=== PATIENT | female | born 1955 | race Caucasian/White ===

== ENCOUNTER → 2020-07-03 10:08 | Outpatient (BNVA) | payer SELFPAY | PROVIDERS: Visit Provider Internal Medicine | DX: F11.99 Opioid use, unspecified with unspecified opioid-induced disorder (principal) | CPT/HCPCS: 80305; 99212 ==

== ENCOUNTER → 2020-09-01 10:11 | Outpatient (BNVA) | payer SELFPAY | PROVIDERS: Visit Provider Internal Medicine | DX: Z76.89 Persons encountering health services in other specified circumstances (principal) ==

== ENCOUNTER → 2020-10-27 10:07 | Outpatient (BNVA) | payer OTHER, SELFPAY | PROVIDERS: Visit Provider Internal Medicine | DX: F11.99 Opioid use, unspecified with unspecified opioid-induced disorder (principal) ==

== ENCOUNTER 2020-11-29 11:50 | Outpatient (REF) | payer OTHER, SELFPAY ==
[2020-11-29 14:05] LABS: Glucose Urine UA NEG (NEG); Leukocyte Esterase Urine NEG (NEG); Nitrite Urine NEG (NEG); Urine Blood NEG (NEG); Urine Ketones NEG (NEG); Urine Protein TRACE MG/DL (NEG-TRACE)
[2020-11-29 14:06] LABS: MANUAL DIFF FLAG NO
[2020-11-29 14:12] LABS: Basophils Absolute Auto 0.1 X10*3/uL (0.0-0.2); Basophils Percent Auto 0.7 % (0-2); Eosinophils Absolute Auto 0.2 X10*3/uL (0.0-0.4); Eosinophils Percent Auto 2.6 % (0-4); Hematocrit 37.6 % (37-47); Hemoglobin 12.1 g/dl (12.0-16.0); Imm Gran Abs Auto 0.03 X10*3/uL (0.00-0.03); Imm Gran Pct Auto 0.4 % (0.0-0.4); Lymphocytes Absolute Auto 2.5 X10*3/uL (1.2-4.9); Lymphocytes Percent Auto 36.1 % (20-40); Mean Corpuscular HGB Conc 32.2 g/dl (31.0-35.0); Mean Corpuscular Hemoglobin 28.9 pg (27.0-33.0); Mean Platelet Volume 10.9 fL (9.4-12.3); Monocytes Absolute Auto 0.5 X10*3/uL (0.1-1.2); Monocytes Percent Auto 6.8 % (2-11); Neutrophils Absolute Auto 3.7 X10*3/uL (2.0-8.3); Neutrophils Percent Auto 53.4 % (45-73); Platelet Count 322 X10*3/uL (160-400); Red Blood Count 4.18 X10*6/uL (4.20-5.50); Red Cell Distribution Width 14.8 % (11.0-16.0); White Blood Count 6.9 X10*3/uL (4.8-10.8)
[2020-11-29 14:13] LABS: Appearance Urine CLEAR; Color Urine YELLOW
[2020-11-29 14:29] LABS: Alanine Aminotransferase 23 U/L (0-31); Alkaline Phosphatase 113 U/L (39-117); Anion Gap 10 (12-20); Aspartate Amino Transferase 29 U/L (5-31); Bilirubin Total 0.8 mg/dL (0.0-1.0); Blood Urea Nitrogen 17 mg/dL (9-16); Calcium 10.3 mg/dL (8.4-10.2); Carbon Dioxide 33 mmol/L (22-29); Chloride 101 mmol/L (96-108); Cholesterol 179 mg/dL; Estimated Glomerular Filt Rate > 60; Glucose Random 95 mg/dL (60-115); Potassium 4.3 mmol/L (3.3-5.1); Sodium 140 mmol/L (135-145); Total Protein 7.3 g/dL (6.5-8.0)
[2020-11-29 14:44] LABS: Vitamin D 25-OH Total 54.4 ng/mL (>30)
[2020-11-29 15:31] LABS: Albumin Level 4.3 g/dL (3.5-5.0)
== END 2020-11-29 11:51 | disposition home or self-care (01) ==
LOC: HO.10HDL 11:50
PROVIDERS: Visit Provider Internal Medicine
DX: I12.9 Hypertensive chronic kidney disease with stage 1 through stage 4 chronic kidney disease, or unspecified chronic kidney disease (principal); N18.9 Chronic kidney disease, unspecified; N20.0 Calculus of kidney
CPT/HCPCS: 36415; 80053; 81003; 82306; 82465; 85025

== ENCOUNTER → 2020-12-22 09:58 | Outpatient (BNVA) | payer OTHER, SELFPAY | PROVIDERS: Visit Provider Internal Medicine | DX: F11.99 Opioid use, unspecified with unspecified opioid-induced disorder (principal) | CPT/HCPCS: 80305 ==

== ENCOUNTER 2020-12-22 12:30 | Outpatient (REF) | payer OTHER, SELFPAY ==
[2020-12-22 14:08] LABS: Glucose Urine UA NEG (NEG); Leukocyte Esterase Urine NEG (NEG); Nitrite Urine NEG (NEG); Specific Gravity - Urine 1.025 (1.005-1.025); Urine Blood NEG (NEG); Urine Ketones NEG (NEG); Urine Protein NEG (NEG-TRACE)
[2020-12-22 14:14] LABS: Appearance Urine CLEAR; Color Urine YELLOW
[2020-12-22 14:29] LABS: Mucus Urine 1+ /LPF; RBC Urine 0 /HPF (0); Renal Epithelial Cells Urine 1+ /LPF; Squamous Epithelial Cell Urine 1+ /LPF
[2020-12-22 14:35] LABS: Anion Gap 12 (12-20); Blood Urea Nitrogen 12 mg/dL (9-16); Carbon Dioxide 30 mmol/L (22-29); Chloride 102 mmol/L (96-108); Estimated Glomerular Filt Rate > 60; Potassium 3.8 mmol/L (3.3-5.1); Sodium 140 mmol/L (135-145)
== END 2020-12-22 12:31 | disposition home or self-care (01) ==
LOC: HO.10HDL 12:30
PROVIDERS: Visit Provider Internal Medicine Nephrology
DX: I10 Essential (primary) hypertension (principal); N20.0 Calculus of kidney
CPT/HCPCS: 36415; 80051; 81001; 82310; 82565; 84520

== ENCOUNTER → 2021-02-19 10:50 | Outpatient (BNVA) | payer OTHER, SELFPAY | PROVIDERS: Visit Provider Internal Medicine | DX: F11.99 Opioid use, unspecified with unspecified opioid-induced disorder (principal) | CPT/HCPCS: 80305 ==

== ENCOUNTER 2021-03-14 10:49 | Outpatient (REF) | payer OTHER, SELFPAY ==
[2021-03-14 13:44] LABS: MANUAL DIFF FLAG NO
[2021-03-14 13:58] LABS: Glucose Urine UA NEG (NEG); Leukocyte Esterase Urine NEG (NEG); Nitrite Urine NEG (NEG); Specific Gravity - Urine 1.015 (1.005-1.025); Urine Blood TRACE (NEG); Urine Ketones NEG (NEG); Urine Protein 1+ MG/DL (NEG-TRACE)
[2021-03-14 14:01] LABS: Basophils Percent Auto 0.5 % (0-2); Eosinophils Absolute Auto 0.3 X10*3/uL (0.0-0.4); Eosinophils Percent Auto 4.7 % (0-4); Hematocrit 37.2 % (37-47); Hemoglobin 11.8 g/dl (12.0-16.0); Imm Gran Abs Auto 0.01 X10*3/uL (0.00-0.03); Imm Gran Pct Auto 0.2 % (0.0-0.4); Lymphocytes Percent Auto 31.3 % (20-40); Mean Corpuscular HGB Conc 31.7 g/dl (31.0-35.0); Mean Corpuscular Hemoglobin 29.2 pg (27.0-33.0); Mean Corpuscular Volume 92.1 fL (80-98); Mean Platelet Volume 10.8 fL (9.4-12.3); Monocytes Absolute Auto 0.5 X10*3/uL (0.1-1.2); Monocytes Percent Auto 7.9 % (2-11); Neutrophils Absolute Auto 3.5 X10*3/uL (2.0-8.3); Neutrophils Percent Auto 55.4 % (45-73); Platelet Count 310 X10*3/uL (160-400); Red Blood Count 4.04 X10*6/uL (4.20-5.50); Red Cell Distribution Width 14.3 % (11.0-16.0); White Blood Count 6.4 X10*3/uL (4.8-10.8)
[2021-03-14 14:02] LABS: Appearance Urine CLEAR; Color Urine YELLOW
[2021-03-14 14:09] LABS: WBC Urine 0 /HPF (0-4)
[2021-03-14 14:30] LABS: Anion Gap 13 (12-20); Blood Urea Nitrogen 15 mg/dL (9-16); Carbon Dioxide 29 mmol/L (22-29); Chloride 104 mmol/L (96-108); Estimated Glomerular Filt Rate > 60; Glucose Random 107 mg/dL (60-115); Potassium 3.8 mmol/L (3.3-5.1); Sodium 142 mmol/L (135-145)
[2021-03-14 14:48] LABS: Calcium 10.5 mg/dL (8.4-10.2)
== END 2021-03-14 10:50 | disposition home or self-care (01) ==
LOC: HO.10HDL 10:49
PROVIDERS: Visit Provider Internal Medicine
DX: R10.9 Unspecified abdominal pain (principal); I10 Essential (primary) hypertension; N20.0 Calculus of kidney
CPT/HCPCS: 36415; 80048; 81001; 81003; 85025; 87086

== ENCOUNTER 2021-03-16 11:29 | Outpatient (REF) | payer OTHER, SELFPAY ==
--- NOTE | ~2021-03-16 | CT_ITS ---
EXAMINATION: CT ABDOMEN AND PELVIS WITHOUT CONTRAST CLINICAL INFORMATION: Right renal colic COMPARISON: Previous CT of the abdomen and pelvis most recent October 2018 and renal ultrasound December 1999 TECHNIQUE: Multidetector volumetric imaging was performed from the superior aspect of the liver through the pubic symphysis. Sagittal and coronal reformatted images were obtained on the technologist's workstation. This CT examination was performed using dose optimization techniques as appropriate, variously including the following: *Automated exposure control *Adjustment of mA and/or kV according to patient size (this includes techniques or standardized protocols for targeted exams where dose is matched to indication/reason for exam; i.e. extremities or head) *Use of iterative reconstruction technique DLP: 433 mGy-cm FINDINGS: LUNG BASES: The visualized lung bases are unremarkable. LIVER, GALLBLADDER, AND BILIARY TREE: The liver is low in attenuation suggestive of fatty infiltration. The liver is slightly enlarged, right lobe measuring 18 cm.. No focal hepatic lesion or biliary ductal dilatation is present. The gallbladder is unremarkable with no evidence of radiopaque gallstones, gallbladder wall thickening, or obvious pericholecystic inflammatory changes. PANCREAS: Unremarkable. SPLEEN: Unremarkable. ADRENAL GLANDS: Unremarkable. KIDNEYS AND URETERS: There is a 4 mm stone in the lower pole of the right kidney. There is a 2 mm stone in the upper pole left kidney. No hydronephrosis, ureteral dilatation or ureteral stone. BLADDER: Unremarkable. GASTROINTESTINAL TRACT: The small and large bowel are unremarkable. The appendix is unremarkable. ABDOMINAL WALL: No significant hernia is appreciated. There is fat in both inguinal canals, right greater than left similar to previous exam. LYMPH NODES: Normal. VASCULAR: Unremarkable. PELVIC VISCERA: Unremarkable. OSSEOUS STRUCTURES: There are degenerative changes of the spine. CT/CT abdomen pelvis wo con IMPRESSION: Small bilateral renal stones. No hydronephrosis. Slightly enlarged fatty liver.
== END 2021-03-16 11:30 | disposition home or self-care (01) ==
LOC: HO.CT 11:29
PROVIDERS: PCP Internal Medicine; Visit Provider Internal Medicine
DX: N23 Unspecified renal colic (principal)
CPT/HCPCS: 74176

== ENCOUNTER → 2021-04-16 10:31 | Outpatient (BNVA) | payer OTHER, SELFPAY | PROVIDERS: PCP Internal Medicine; Visit Provider Internal Medicine | DX: Z51.81 Encounter for therapeutic drug level monitoring (principal); F11.99 Opioid use, unspecified with unspecified opioid-induced disorder | CPT/HCPCS: 80305 ==

== ENCOUNTER 2021-06-18 10:35 | Outpatient (REF) | payer OTHER, SELFPAY ==
[2021-06-18 18:38] LABS: Fentanyl, urine Not Detected (Not Detect)
== END 2021-06-18 10:36 | disposition home or self-care (01) ==
LOC: HO.LNP 10:35
PROVIDERS: Visit Provider Internal Medicine
DX: F11.20 Opioid dependence, uncomplicated (principal); Z79.899 Other long term (current) drug therapy
CPT/HCPCS: 80305; 80307

== ENCOUNTER → 2021-07-25 10:15 | Outpatient (BNVA) | payer OTHER, SELFPAY | PROVIDERS: Visit Provider Internal Medicine | DX: F11.99 Opioid use, unspecified with unspecified opioid-induced disorder (principal); Z88.1 Allergy status to other antibiotic agents; Z88.0 Allergy status to penicillin; Z88.8 Allergy status to other drugs, medicaments and biological substances; Z51.81 Encounter for therapeutic drug level monitoring | CPT/HCPCS: 80305; 96372; Q9992 ==

== ENCOUNTER → 2021-08-22 10:31 | Outpatient (BNVA) | payer OTHER, SELFPAY | PROVIDERS: Visit Provider Internal Medicine | DX: F11.20 Opioid dependence, uncomplicated (principal); Z51.81 Encounter for therapeutic drug level monitoring; Z79.899 Other long term (current) drug therapy | CPT/HCPCS: 80305; 96372; Q9992 ==

== ENCOUNTER 2021-08-29 08:28 | Outpatient (REF) | payer OTHER, SELFPAY ==
[2021-08-29 10:04] LABS: MANUAL DIFF FLAG NO
[2021-08-29 10:10] LABS: Basophils Percent Auto 0.5 % (0-2); Eosinophils Absolute Auto 0.3 X10*3/uL (0.0-0.4); Eosinophils Percent Auto 5.7 % (0-4); Hematocrit 36.8 % (37.0-47.0); Hemoglobin 12.1 g/dl (12.0-16.0); Imm Gran Abs Auto 0.01 X10*3/uL (0.00-0.03); Imm Gran Pct Auto 0.2 % (0.0-0.4); Lymphocytes Absolute Auto 2.4 X10*3/uL (1.2-4.9); Lymphocytes Percent Auto 40.5 % (20-40); Mean Corpuscular HGB Conc 32.9 g/dl (31.0-35.0); Mean Corpuscular Hemoglobin 29.2 pg (27.0-33.0); Mean Corpuscular Volume 88.7 fL (80.0-98.0); Mean Platelet Volume 10.6 fL (9.4-12.3); Monocytes Absolute Auto 0.6 X10*3/uL (0.1-1.2); Monocytes Percent Auto 9.5 % (2-11); Neutrophils Absolute Auto 2.5 x10*3/uL (2.0-8.3); Neutrophils Percent Auto 43.6 % (45-73); Platelet Count 275 X10*3/uL (160-400); Red Blood Count 4.15 X10*6/uL (4.20-5.50); Red Cell Distribution Width 14.4 % (11.0-16.0); White Blood Count 5.8 X10*3/uL (4.8-10.8)
[2021-08-29 11:00] LABS: Alanine Aminotransferase 32 U/L (0-31); Alkaline Phosphatase 95 U/L (39-117); Anion Gap 12 (12-20); Aspartate Amino Transferase 35 U/L (5-31); Bilirubin Total 0.6 mg/dL (0.0-1.0); Blood Urea Nitrogen 14 mg/dL (9-16); Calcium 10.2 mg/dL (8.4-10.2); Carbon Dioxide 30 mmol/L (22-29); Chloride 103 mmol/L (96-108); Cholesterol 147 mg/dL; Estimated Glomerular Filt Rate > 60; Glucose Fasting 104 mg/dL (60-99); HDL Cholesterol 44 mg/dL; LDL Cholesterol Calculated 68 mg/dl; Potassium 3.5 mmol/L (3.3-5.1); Sodium 141 mmol/L (135-145); Total Protein 7.2 g/dL (6.5-8.0); Triglycerides 179 mg/dL
== END 2021-08-29 08:29 | disposition home or self-care (01) ==
LOC: HO.10HDL 08:28
PROVIDERS: Visit Provider Internal Medicine
DX: E78.00 Pure hypercholesterolemia, unspecified (principal); I10 Essential (primary) hypertension; J45.909 Unspecified asthma, uncomplicated
CPT/HCPCS: 36415; 80053; 80061; 85025

== ENCOUNTER → 2021-09-19 10:15 | Outpatient (BNVA) | payer OTHER, SELFPAY | PROVIDERS: Visit Provider Internal Medicine | DX: F11.20 Opioid dependence, uncomplicated (principal); Z51.81 Encounter for therapeutic drug level monitoring; Z79.899 Other long term (current) drug therapy | CPT/HCPCS: 80305; 96372; Q9991 ==

== ENCOUNTER → 2021-10-17 09:57 | Outpatient (BNVA) | payer OTHER, SELFPAY | PROVIDERS: Visit Provider Internal Medicine | DX: Z51.81 Encounter for therapeutic drug level monitoring (principal); F11.20 Opioid dependence, uncomplicated | CPT/HCPCS: 80305; 96372; Q9991 ==

== ENCOUNTER → 2021-11-14 10:33 | Outpatient (BNVA) | payer OTHER, SELFPAY | PROVIDERS: Visit Provider Internal Medicine | DX: Z51.81 Encounter for therapeutic drug level monitoring (principal); F11.20 Opioid dependence, uncomplicated | CPT/HCPCS: 80305; 81025; 96372; Q9991 ==

== ENCOUNTER → 2021-12-12 11:33 | Outpatient (BNVA) | payer OTHER, SELFPAY | PROVIDERS: Visit Provider Internal Medicine | DX: Z51.81 Encounter for therapeutic drug level monitoring (principal); F11.20 Opioid dependence, uncomplicated | CPT/HCPCS: 80305; 81025; 96372 ==

== ENCOUNTER 2021-12-12 12:17 | Outpatient (REF) | payer OTHER, SELFPAY ==
[2021-12-12 13:23] LABS: Appearance Urine CLEAR; Color Urine YELLOW; Glucose Urine UA NEG (NEG); Leukocyte Esterase Urine NEG (NEG); Nitrite Urine NEG (NEG); Urine Blood 1+ (NEG); Urine Ketones NEG (NEG); Urine Protein TRACE MG/DL (NEG-TRACE)
[2021-12-12 13:34] LABS: Squamous Epithelial Cell Urine 1+ /LPF; WBC Urine 0 /HPF (0-4)
[2021-12-12 13:40] LABS: Anion Gap 11 (12-20); Blood Urea Nitrogen 14 mg/dL (9-16); Calcium 10.7 mg/dL (8.4-10.2); Carbon Dioxide 31 mmol/L (22-29); Chloride 99 mmol/L (96-108); Estimated Glomerular Filt Rate > 60; Potassium 3.5 mmol/L (3.3-5.1); Sodium 137 mmol/L (135-145)
== END 2021-12-12 12:18 | disposition home or self-care (01) ==
LOC: HO.10HDL 12:17
PROVIDERS: Visit Provider Internal Medicine Nephrology
DX: F11.20 Opioid dependence, uncomplicated (principal); N20.0 Calculus of kidney; I10 Essential (primary) hypertension; Z51.81 Encounter for therapeutic drug level monitoring; Z79.899 Other long term (current) drug therapy
CPT/HCPCS: 36415; 80051; 81001; 82310; 82565; 84520

== ENCOUNTER → 2022-01-09 11:25 | Outpatient (BNVA) | payer OTHER, SELFPAY | PROVIDERS: Visit Provider Internal Medicine | DX: Z13.89 Encounter for screening for other disorder (principal) ==

== ENCOUNTER 2022-03-25 15:40 | Outpatient (REF) | payer OTHER, SELFPAY ==
[2022-03-25 15:58] LABS: MANUAL DIFF FLAG NO
[2022-03-25 16:10] LABS: Basophils Absolute Auto 0.1 X10*3/uL (0.0-0.2); Basophils Percent Auto 0.7 % (0-2); Eosinophils Absolute Auto 0.4 X10*3/uL (0.0-0.4); Eosinophils Percent Auto 4.6 % (0-4); Hemoglobin 12.9 g/dl (12.0-16.0); Imm Gran Abs Auto 0.01 X10*3/uL (0.00-0.03); Imm Gran Pct Auto 0.1 % (0.0-0.4); Lymphocytes Absolute Auto 3.1 X10*3/uL (1.2-4.9); Lymphocytes Percent Auto 40.4 % (20-40); Mean Corpuscular HGB Conc 33.1 g/dl (31.0-35.0); Mean Corpuscular Volume 90.7 fL (80.0-98.0); Monocytes Absolute Auto 0.6 X10*3/uL (0.1-1.2); Monocytes Percent Auto 7.8 % (2-11); Neutrophils Absolute Auto 3.5 x10*3/uL (2.0-8.3); Neutrophils Percent Auto 46.4 % (45-73); Platelet Count 294 X10*3/uL (160-400); Red Cell Distribution Width 14.3 % (11.0-16.0); White Blood Count 7.6 X10*3/uL (4.8-10.8)
[2022-03-25 16:59] LABS: Alanine Aminotransferase 47 U/L (0-31); Albumin Level 4.4 g/dL (3.5-5.0); Alkaline Phosphatase 96 U/L (39-117); Anion Gap 12 (12-20); Aspartate Amino Transferase 42 U/L (5-31); Bilirubin Total 0.6 mg/dL (0.0-1.0); Blood Urea Nitrogen 14 mg/dL (9-16); Calcium 11.1 mg/dL (8.4-10.2); Carbon Dioxide 29 mmol/L (22-29); Chloride 103 mmol/L (96-108); Estimated Glomerular Filt Rate > 60; Glucose Random 118 mg/dL (60-115); Potassium 3.6 mmol/L (3.3-5.1); Sodium 140 mmol/L (135-145); Total Protein 7.6 g/dL (6.5-8.0)
[2022-03-26 12:11] LABS: Calcium (PTHI) 11.2 mg/dL (8.6-10.4); PTHI 74 pg/mL (16-77)
== END 2022-03-25 15:41 | disposition home or self-care (01) ==
LOC: HO.LAB 15:40
PROVIDERS: PCP Internal Medicine; Visit Provider Internal Medicine
DX: I10 Essential (primary) hypertension (principal); J45.909 Unspecified asthma, uncomplicated; E78.00 Pure hypercholesterolemia, unspecified; E83.52 Hypercalcemia
CPT/HCPCS: 36415; 80053; 83970; 85025

== ENCOUNTER 2022-06-13 12:46 | Outpatient (REF) | payer OTHER, SELFPAY ==
[2022-06-13 14:11] LABS: Alanine Aminotransferase 49 U/L (0-31); Albumin Level 4.5 g/dL (3.5-5.0); Alkaline Phosphatase 109 U/L (39-117); Anion Gap 18 (12-20); Aspartate Amino Transferase 39 U/L (5-31); Bilirubin Total 0.3 mg/dL (0.0-1.0); Blood Urea Nitrogen 15 mg/dL (9-16); Carbon Dioxide 27 mmol/L (22-29); Chloride 101 mmol/L (96-108); Estimated Glomerular Filt Rate > 60; Glucose Random 94 mg/dL (60-115); Potassium 4.5 mmol/L (3.3-5.1); Sodium 141 mmol/L (135-145); Total Protein 7.7 g/dL (6.5-8.0)
[2022-06-13 14:23] LABS: Calcium 11.4 mg/dL (8.4-10.2)
== END 2022-06-13 12:47 | disposition home or self-care (01) ==
LOC: HO.10HDL 12:46
PROVIDERS: Visit Provider Internal Medicine
DX: E83.52 Hypercalcemia (principal); Z87.442 Personal history of urinary calculi; K76.0 Fatty (change of) liver, not elsewhere classified
CPT/HCPCS: 36415; 80053

== ENCOUNTER 2022-09-23 10:49 | Outpatient (REF) | payer OTHER, SELFPAY ==
[2022-09-23 13:28] LABS: MANUAL DIFF FLAG NO
[2022-09-23 13:34] LABS: Eosinophils Percent Auto 3.2 % (0-4); Hematocrit 39.7 % (37.0-47.0); Hemoglobin 12.9 g/dl (12.0-16.0); Imm Gran Pct Auto 0.3 % (0.0-0.4); Lymphocytes Percent Auto 41.2 % (20-40); Mean Corpuscular HGB Conc 32.5 g/dl (31.0-35.0); Mean Corpuscular Hemoglobin 29.5 pg (27.0-33.0); Mean Corpuscular Volume 90.8 fL (80.0-98.0); Mean Platelet Volume 10.1 fL (9.4-12.3); Monocytes Percent Auto 6.6 % (2-11); Neutrophils Percent Auto 47.7 % (45-73); Platelet Count 369 X10*3/uL (160-400); Red Blood Count 4.37 X10*6/uL (4.20-5.50); Red Cell Distribution Width 13.7 % (11.0-16.0)
[2022-09-23 13:35] LABS: Basophils Absolute Auto 0.1 X10*3/uL (0.0-0.2); Eosinophils Absolute Auto 0.2 X10*3/uL (0.0-0.4); Imm Gran Abs Auto 0.02 X10*3/uL (0.00-0.03); Lymphocytes Absolute Auto 2.9 X10*3/uL (1.2-4.9); Monocytes Absolute Auto 0.5 X10*3/uL (0.1-1.2); Neutrophils Absolute Auto 3.3 x10*3/uL (2.0-8.3)
[2022-09-23 13:46] LABS: Appearance Urine Cloudy; Color Urine Yellow; Glucose Urine UA Negative (Negative); Leukocyte Esterase Urine Trace (Negative); Nitrite Urine Negative (Negative); PH 6.5 (5.0-9.0); UMIC TRIGGER UA YES; Urine Blood Moderate (2+) (Negative); Urine Ketones Negative (Negative); Urine Protein 300 (3+) mg/dL (Neg-Trace)
[2022-09-23 14:01] LABS: Bacteria Urine None Seen (None Seen); Hyaline Casts Urine 0-2 /LPF (0-2); RBC Urine >20 /HPF (0-2); Squamous Epithelial Cell Urine 0-2 /HPF (0-2)
[2022-09-23 14:02] LABS: Alanine Aminotransferase 49 U/L (0-31); Albumin Level 4.3 g/dL (3.5-5.0); Alkaline Phosphatase 113 U/L (39-117); Anion Gap 16 (12-20); Aspartate Amino Transferase 45 U/L (5-31); Bilirubin Total 0.6 mg/dL (0.0-1.0); Blood Urea Nitrogen 14 mg/dL (9-16); Calcium 10.8 mg/dL (8.4-10.2); Carbon Dioxide 25 mmol/L (22-29); Chloride 105 mmol/L (96-108); Cholesterol 176 mg/dL; Estimated Glomerular Filt Rate > 60; Glucose Fasting 101 mg/dL (60-99); HDL Cholesterol 47 mg/dL; LDL Cholesterol Calculated 80 mg/dl; Phosphorus 2.6 mg/dL (2.7-4.5); Potassium 4.5 mmol/L (3.3-5.1); Sodium 141 mmol/L (135-145); Total Protein 7.5 g/dL (6.5-8.0); Triglycerides 249 mg/dL
[2022-09-24 12:58] LABS: Calcium (PTHI) 10.8 mg/dL (8.6-10.4); PTHI 107 pg/mL (16-77)
== END 2022-09-23 10:50 | disposition home or self-care (01) ==
LOC: HO.10HDL 10:49
PROVIDERS: Visit Provider Internal Medicine
DX: Z00.00 Encounter for general adult medical examination without abnormal findings (principal); N20.0 Calculus of kidney; I10 Essential (primary) hypertension
CPT/HCPCS: 36415; 80053; 80061; 81001; 83970; 84100; 85025

== ENCOUNTER 2023-01-15 12:29 | Outpatient (REF) | payer MEDICARE, SELFPAY ==
--- NOTE | ~2023-01-15 | MM_ITS ---
EXAMINATION: BONE DENSITOMETRY CLINICAL INDICATION: Menopause. COMPARISON: Baseline BD dated 10/06/2006. TECHNIQUE: Using a Combined Effort DXA System (software version: 13.1) manufactured by [employer], dual-energy x-ray absorptiometry was performed of the lumbar spine and left hip. The images are of good technical quality. Summary results are attached. FINDINGS: AP SPINE L1-L4: There is an oval density overlying the right paraspinal region, possibly staghorn calculus right kidney. Current: BMD 0.910 g/cm2, Z-score -1.2, T-score -2.2, osteopenia, 12.9% decrease from baseline (<5% change is not significant). Baseline: BMD 1.045 g/cm2. LEFT FEMUR, NECK: Current: BMD 0.710 g/cm2, Z-score -1.2, T-score -2.4, osteopenia. Baseline: BMD 0.809 g/cm2. LEFT FEMUR, TOTAL: Current: BMD 0.745 g/cm2, Z-score -1.2, T-score -2.1, osteopenia, 10.1% decrease from baseline (<5% change is not significant). Baseline: BMD 0.829 g/cm2. IDENTIFIED RISK FACTORS: Menopause. HISTORY OF FRACTURE: None listed. MEDICATIONS: Multivitamin. MM/XR DEXA axial skeleton IMPRESSION: 1. COMMENT: Oval density overlying right paraspinal region, possibly staghorn calculus right kidney. 2. DIAGNOSIS: Osteopenia based on the lowest T-score value of -2.4 in the femoral neck applying World Health Organization criteria. 3. 10-YEAR FRACTURE RISK PREDICTION, FRAX: Major osteoporotic fracture (clinical spine, forearm, hip or shoulder) 12.8%. Hip fracture 2.6%. 4. Treatment Recommendations: NOF guidelines recommend consideration for treatment in postmenopausal women and men age 50 and older presenting with the following: -A hip or vertebral (clinical or morphometric) fracture. -T-score less than or equal to -2.5 at the femoral neck or spine after appropriate evaluation to exclude secondary causes. -Low bone mass at the hip or spine and a 10-year fracture probability by FRAX of greater than or equal to 3% for hip fracture or greater than or equal to 20% for major osteoporotic fracture based on the [place] adapted WHO algorithm. 5. Other Recommendations: All treatment decisions require clinical judgment and consideration of individual patient factors, including patient preferences, comorbidities, previous drug use, risk factors not captured in the FRAX model (e.g. frailty, falls, vitamin D deficiency, increased bone turnover, interval significant decline in bone density) and possible under or overestimation of fracture risk by FRAX. Additional medical evaluation for secondary cause of low bone mineral density may be appropriate. FUTURE SCAN RECOMMENDATION: People with diagnosed cases of osteoporosis or at high risk for fracture should have regular bone mineral density tests. For patients eligible for Medicare, routine testing is allowed once every 2 years. The testing frequency can be increased to one year for patients who have rapidly progressing disease, those who are receiving or discontinuing medical therapy to restore bone mass, or have additional risk factors.
--- NOTE | ~2023-01-15 | MM_ITS ---
EXAMINATION: MM SCREENING DIGITAL BREAST TOMOSYNTHESIS, BILATERAL CLINICAL INFORMATION: Screening. Asymptomatic. The lifetime risk of breast cancer based on the Tyrer-Cuzick Model is 5.7%. COMPARISON: Mammography: 07/18/2017, 08/04/2017, and 10/25/2008. TECHNIQUE: Digital breast tomosynthesis is performed in both the craniocaudal and mediolateral oblique views along with computer-aided detection (CAD). Synthesized 2D images are generated from the tomosynthesis. FINDINGS: Comparison with prior studies is difficult due to technique used on the prior studies. The breasts are heterogeneously dense, which may obscure small masses (ACR BI-RADS breast composition Category c). There are multiple circumscribed densities seen within both breasts one of which within the inferior medial aspect contains some calcifications and for which spot magnification views and 90 degree mediolateral and craniocaudal views is suggested. Within the left breast medially approximately 5 cm from the nipple there is a 6 mm lobular density for which spot compression film is recommended. This may represent superimposition of multiple vessels however lobular mass cannot be excluded. MM/MM tomosynthesis screening BI IMPRESSION: Bilateral breast findings for which further evaluation is recommended. ASSESSMENT: BI-RADS 0: Incomplete - Need Additional Imaging Evaluation RECOMMENDATION: 1. Additional views of the bilateral breasts 2. Targeted ultrasound if warranted after review of the additional views. 3. Radiology department staff will contact the patient for additional imaging. This patient's information was entered into a reminder system with a target due date for their next mammogram.
== END 2023-01-15 12:30 | disposition home or self-care (01) ==
LOC: HO.MAMMO 12:29
PROVIDERS: PCP Internal Medicine; Visit Provider Internal Medicine
DX: Z12.31 Encounter for screening mammogram for malignant neoplasm of breast (principal); Z13.820 Encounter for screening for osteoporosis; Z78.0 Asymptomatic menopausal state
CPT/HCPCS: 77063; 77067; 77080

== ENCOUNTER 2023-01-21 12:56 | Outpatient (REF) | payer MEDICARE, SELFPAY ==
--- NOTE | ~2023-01-21 | MM_ITS ---
EXAMINATION: MM DIAGNOSTIC DIGITAL BREAST TOMOSYNTHESIS, BILATERAL CLINICAL INFORMATION: Recall from screening for calcifications mid 6:00 right breast and asymmetric density mid medial left breast, respectively. COMPARISON: Mammography: 01/15/2023, 07/18/2017, 07/04/2017. TECHNIQUE: Digital breast tomosynthesis is performed. 2D images are generated from the tomosynthesis. The following views are obtained: Right magnification CC x2, right magnification ML, spot left CC. FINDINGS: There are scattered areas of fibroglandular density (ACR BI-RADS breast composition Category b). Breast tissue composition borders on heterogeneously dense. There is fibronodular parenchymal pattern similar to prior exam 2017. Additional magnification views right breast show a few punctate round calcifications mid lower right breast. There are similar appearing calcifications on the left. Calcifications will be reassessed again in 6 months. Additional view left breast demonstrates fibronodular densities similar to prior mammography 2017. No developing density or architectural abnormality. Results are discussed with the patient at time of visit. Patient confirms no additional mammography between 2016 and 2022. MM/MM tomosynthesis added view BI IMPRESSION: Right: -A few benign-appearing punctate calcifications mid lower right breast. Left: -No significant changes from prior exam 2017. ASSESSMENT: BI-RADS 3: Probably Benign RECOMMENDATION: Diagnostic right mammography in 6 months. This patient's information was entered into a reminder system with a target due date for their next mammogram.
== END 2023-01-21 12:57 | disposition home or self-care (01) ==
LOC: HO.MAMMO 12:56
PROVIDERS: Visit Provider Internal Medicine
DX: R92.1 Mammographic calcification found on diagnostic imaging of breast (principal)
CPT/HCPCS: 77062; 77066

== ENCOUNTER 2023-02-20 12:57 | Outpatient (REF) | payer MEDICARE, SELFPAY ==
[2023-02-20 14:02] LABS: Alanine Aminotransferase 45 U/L (0-31); Albumin Level 4.3 g/dL (3.5-5.0); Alkaline Phosphatase 118 U/L (39-117); Anion Gap 11 (12-20); Aspartate Amino Transferase 38 U/L (5-31); Bilirubin Total 0.7 mg/dL (0.0-1.0); Blood Urea Nitrogen 14 mg/dL (9-16); Calcium 10.5 mg/dL (8.4-10.2); Carbon Dioxide 28 mmol/L (22-29); Chloride 108 mmol/L (96-108); Estimated Glomerular Filt Rate > 60; Glucose Random 92 mg/dL (60-115); Potassium 4.5 mmol/L (3.3-5.1); Sodium 142 mmol/L (135-145); Total Protein 7.6 g/dL (6.5-8.0)
== END 2023-02-20 12:58 | disposition home or self-care (01) ==
LOC: HO.LAB 12:57
PROVIDERS: PCP Internal Medicine; Visit Provider Internal Medicine
DX: I10 Essential (primary) hypertension (principal)
CPT/HCPCS: 36415; 80053

== ENCOUNTER 2023-06-04 12:13 | Outpatient (REF) | payer MEDICARE, SELFPAY ==
[2023-06-04 13:59] LABS: Anion Gap 12 (12-20); Blood Urea Nitrogen 13 mg/dL (9-16); Calcium 9.8 mg/dL (8.4-10.2); Carbon Dioxide 26 mmol/L (22-29); Chloride 107 mmol/L (96-108); Estimated Glomerular Filt Rate > 60; Potassium 4.1 mmol/L (3.3-5.1); Sodium 141 mmol/L (135-145); Uric Acid 5.9 mg/dL (2.4-5.7)
[2023-06-05 12:04] LABS: Calcium (PTHI) 9.6 mg/dL (8.6-10.4); PTHI 111 pg/mL (16-77)
== END 2023-06-04 12:14 | disposition home or self-care (01) ==
LOC: HO.10HDL 12:13
PROVIDERS: Visit Provider Internal Medicine Nephrology
DX: N20.0 Calculus of kidney (principal); I10 Essential (primary) hypertension
CPT/HCPCS: 36415; 80051; 82310; 82565; 83970; 84520; 84550

== ENCOUNTER → 2023-07-25 09:00 | Outpatient (BNV) | payer MEDICARE, SELFPAY | PROVIDERS: PCP Internal Medicine; Visit Provider Radiology Diagnostic Radiology | DX: R92.1 Mammographic calcification found on diagnostic imaging of breast (principal) | CPT/HCPCS: 76642; 77061; 77065; G0279 ==

== ENCOUNTER 2023-07-25 09:03 | Outpatient (REF) | payer MEDICARE, SELFPAY ==
--- NOTE | ~2023-07-25 | US_ITS ---
EXAMINATION: MM DIAGNOSTIC DIGITAL BREAST TOMOSYNTHESIS, RIGHT US BREAST LIMITED, RIGHT MAMMOGRAPHY: CLINICAL INFORMATION: 6 month follow-up for calcifications in the lower central right breast, approximately 6:00 position. COMPARISON: Mammography: 01/21/2023, 01/15/2023, 07/18/2017, and 07/04/2017. TECHNIQUE: Digital breast tomosynthesis is performed in the following views: 2-D spot magnification right CC and ML views, as well as full-field 3-D digital right CC and MLO views. 2-D images were generated from the tomosynthesis. FINDINGS: There are scattered areas of fibroglandular density (ACR BI-RADS breast composition Category b). Additional views demonstrate a small group of approximately 5-6 punctate round calcifications in the 6:00 axis right breast, middle one third. These have a benign appearance and again are probably benign. The parenchymal pattern is otherwise unchanged from the prior exam aside from a subtle nodular 6 x 5 mm focal asymmetry in the 1:00 position, lying along the nipple line in both the CC and MLO views. This will be evaluated by ultrasound. No additional suspicious findings noted in the right breast. ULTRASOUND: CLINICAL INFORMATION: Evaluate nodular 6 x 5 mm focal asymmetry in the 1:00 position, posterior one third seen on today's diagnostic exam. COMPARISON: No prior ultrasound. Numerous prior mammograms compared, which could not discretely demonstrate this focal nodular abnormality. TECHNIQUE: Targeted sonographic evaluation was performed using a high frequency linear transducer. Attention at the retroareolar 12:00 region posterior one third was given. Selected archived documentation. FINDINGS: RIGHT BREAST: There is a mixture of fatty and fibroglandular tissue. No suspicious mass is seen. There is no pathologic acoustic shadowing. In the area of interest, 1:00 axis, 4 cm from the nipple, there is a minimally complicated cyst with good through transmission measuring 0.5 x 0.4 x 0.4 cm, correlating well with the focus of mammographic concern. This is probably benign and to be cautious, will be evaluated in 6 months via ultrasound, when the patient returns for follow-up diagnostic right mammogram also in 6 months. Both the technologist and myself scanned the patient. Results were given. US/US breast RT limited mamm only IMPRESSION: 1. Calcifications right breast 6:00 axis are unchanged and probably benign in morphology. Six-month interval follow-up recommended to include standard magnification views. 2. Mildly complicated cyst at the 1:00 axis right breast is probably benign, however will be assessed again via ultrasound to ensure stability. If unchanged at that time, no further follow-up recommended. OVERALL ASSESSMENT: Mammography: BI-RADS 3 - Probably benign finding(s) - 6 month follow-up suggested Ultrasound: BI-RADS 3 - Probably benign finding(s) - 6 month follow-up suggested RECOMMENDATION: 6 Month F/U Results were provided to the patient at time of visit by the technologist. This patient's information was entered into a reminder system with a target due date for their next mammogram.
== END 2023-07-25 09:04 | disposition home or self-care (01) ==
LOC: HO.MAMMO 09:03
PROVIDERS: PCP Internal Medicine; Visit Provider Internal Medicine
DX: R92.1 Mammographic calcification found on diagnostic imaging of breast (principal)
CPT/HCPCS: 76642; 77061; 77065

== ENCOUNTER 2023-08-18 11:10 | Outpatient (AMB) | payer MEDICARE, SELFPAY ==
--- NOTE | 2023-08-18 11:13 | HO.NEPHOV_ITS ---
HPI HPI Comments History of Present Illness Details I had the privilege of seeing Monica in follow-up of her nephrolithiasis. She was found have hypercalcemia from primary hyperparathyroidism and underwent parathyroidectomy by Dr. Gauthier. She continues to have right flank pain. Her serum calcium has normalized. 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 Her blood pressure is currently well controlled on the current medication regimen. She does not take any nonsteroidal anti-inflammatory medications. Her renal functions are normal. She keeps up with good hydration. She does not have any chest pain, shortness of breath, proximal nocturnal dyspnea, pedal edema, fever, chills, rigors or recent urinary infections. [facility] Medical History Opioid use disorder Social History Patient Tobacco Use Status: Never used Tobacco Vital Signs 08/18/23 11:16 Height 5 ft 7 in Weight 176 lb 8 oz BMI 27.6 BP 134/80 Blood Pressure Location Rt brachial Position Sitting Pulse 71 Pulse Source Pulse Oximeter Physical Exam Vital Signs: Last Vital Signs Pulse 71 08/18/23 11:16 BP 134/80 08/18/23 11:16 BMI result Body Mass Index 27.6 Const General: comfortable and no acute distress Orientation/consciousness: patient oriented x3 HEENT Head: Yes normocephalic Mouth: Normal oral and palatal mucosa present Eyes EOM: EOMs intact bilaterally Neck Neck: Yes supple Resp Auscultation: clear to auscultation bilaterally Cardio Jugular venous distension: no JVD Rate: regular rate GI Palpation (GI): Soft to palpation Auscultation: normal bowel sounds General: Yes no CVA tenderness Back/Spine/Pelvis Back: no CVA tenderness Skin General skin exam: no rashes or lesions noted Neuro General: patient oriented x3 and moves all extremities Extrem General: Yes no pedal edema Assessment & Plan Assessment & Plan (1) Renal stone: Code(s): N20.0 - Calculus of kidney (2) Hypertension: Code(s): I10 - Essential (primary) hypertension Plan Monica is known to have nephrolithiasis for long time. She had been on hydrochlorothiazide before. She had hypercalcemia and was found to have primary hyperparathyroidism. She underwent parathyroidectomy. His serum calcium is normal. Her blood pressure is at goal. She does not have any recurrent urinary infections. She is known to have right staghorn calculus and continues to have right flank pain. She will need a Urology appointment. She will need reimaging. Her has been seeing a urologist in [place] and patient has requested a consult with him which I gladly arranged. I did not make any medication changes today. I encouraged her to maintain low-sodium diet ,cut back on animal protein, and treat urinary infections appropriately. All questions answered. Follow-up given. Orders: Orders Parathyroid Hormone Intact 08/18/23 N20.0 - Calculus of kidney Phosphorus 08/18/23 N20.0 - Calculus of kidney Calcium 08/18/23 N20.0 - Calculus of kidney Vitamin D 25-OH Total 08/18/23 N20.0 - Calculus of kidney Protein Creatinine Ratio, Ur 08/18/23 N20.0 - Calculus of kidney UA and rflx microscopic 08/18/23 N20.0 - Calculus of kidney Referrals Urology Referral N20.0 - Calculus of kidney Coding Level of Care Code Est Pt Level 4 (26464) Diagnoses Renal stone N20.0 Hypertension I10 Results Reviewed Nephrology Results: Hgb 12.9 g/dl (12.0-16.0) 09/23/22 WBC 7.0 X10*3/uL (4.8-10.8) 09/23/22 Plt Count 369 X10*3/uL (160-400) 09/23/22 Sodium 141 mmol/L (135-145) 06/04/23 Potassium 4.1 mmol/L (3.3-5.1) 06/04/23 Chloride 107 mmol/L (96-108) 06/04/23 Carbon Dioxide 26 mmol/L (22-29) 06/04/23 BUN 13 mg/dL (9-16) 06/04/23 Creatinine 0.79 mg/dL (0.5-1.4) 06/04/23 Calcium 9.8 mg/dL (8.4-10.2) 06/04/23 Phosphorus 2.6 mg/dL (2.7-4.5) L 09/23/22
[2023-08-18 11:16] VITALS: BP 134/80; PULSE 71; BMI 27.6
== END 2023-08-18 11:55 | disposition home or self-care (01) ==
PROVIDERS: PCP Internal Medicine; Visit Provider Internal Medicine Nephrology
DX: N20.0 Calculus of kidney (principal); I10 Essential (primary) hypertension
CPT/HCPCS: 99214

== ENCOUNTER → 2023-08-18 11:10 | Outpatient (BNVA) | payer MEDICARE, SELFPAY | PROVIDERS: PCP Internal Medicine; Visit Provider Internal Medicine Nephrology | DX: N20.0 Calculus of kidney (principal); I10 Essential (primary) hypertension | CPT/HCPCS: 99212 ==

== ENCOUNTER 2023-08-25 10:10 | Outpatient (REF) | payer MEDICARE, SELFPAY ==
[2023-08-25 14:08] LABS: Anion Gap 15 (12-20); Blood Urea Nitrogen 14 mg/dL (9-16); Carbon Dioxide 25 mmol/L (22-29); Chloride 105 mmol/L (96-108); Estimated Glomerular Filt Rate > 60; Glucose Random 103 mg/dL (60-115); Potassium 4.1 mmol/L (3.3-5.1); Sodium 141 mmol/L (135-145)
== END 2023-08-25 10:11 | disposition home or self-care (01) ==
LOC: HO.10HDL 10:10
PROVIDERS: Visit Provider Internal Medicine
DX: E83.52 Hypercalcemia (principal)
CPT/HCPCS: 36415; 80048

== ENCOUNTER 2023-12-10 09:58 | Outpatient (REF) | payer MEDICARE, SELFPAY ==
[2023-12-10 12:11] LABS: Basophils Percent Auto 0.7 % (0-2); Eosinophils Absolute Auto 0.4 X10*3/uL (0.0-0.4); Eosinophils Percent Auto 6.1 % (0-4); Hemoglobin 12.6 g/dl (12.0-16.0); Imm Gran Abs Auto 0.03 X10*3/uL (0.00-0.03); Imm Gran Pct Auto 0.5 % (0.0-0.4); Lymphocytes Absolute Auto 2.9 X10*3/uL (1.2-4.9); Lymphocytes Percent Auto 49.7 % (20-40); MANUAL DIFF FLAG SCAN; Mean Corpuscular HGB Conc 32.3 g/dl (31.0-35.0); Mean Corpuscular Hemoglobin 29.3 pg (27.0-33.0); Mean Corpuscular Volume 90.7 fL (80.0-98.0); Mean Platelet Volume 10.5 fL (9.4-12.3); Monocytes Absolute Auto 0.3 X10*3/uL (0.1-1.2); Monocytes Percent Auto 5.1 % (2-11); Neutrophils Absolute Auto 2.2 x10*3/uL (2.0-8.3); Neutrophils Percent Auto 37.9 % (45-73); Platelet Count 320 X10*3/uL (160-400); Red Cell Distribution Width 14.7 % (11.0-16.0); SCAN SMEAR FLAG 1; White Blood Count 5.9 X10*3/uL (4.8-10.8)
[2023-12-10 12:12] LABS: Appearance Urine Clear; Color Urine Yellow; Glucose Urine UA Negative (Negative); Leukocyte Esterase Urine Negative (Negative); Nitrite Urine Negative (Negative); UMIC TRIGGER UA YES; Urine Blood Negative (Negative); Urine Ketones Negative (Negative); Urine Protein 300 (3+) mg/dL (Neg-Trace)
[2023-12-10 12:18] LABS: Bacteria Urine None Seen (None Seen); Hyaline Casts Urine 0-2 /LPF (0-2); RBC Urine 0-2 /HPF (0-2); Squamous Epithelial Cell Urine 0-2 /HPF (0-2); WBC Urine 0-5 /HPF (0-5)
[2023-12-10 12:50] LABS: Creatinine Urine 109.29 mg/dL
[2023-12-10 12:51] LABS: Alanine Aminotransferase 34 U/L (0-31); Albumin Level 4.4 g/dL (3.5-5.0); Alkaline Phosphatase 104 U/L (39-117); Anion Gap 11 (12-20); Aspartate Amino Transferase 31 U/L (5-31); Bilirubin Total 0.4 mg/dL (0.0-1.0); Blood Urea Nitrogen 11 mg/dL (9-16); Calcium 9.6 mg/dL (8.4-10.2); Carbon Dioxide 26 mmol/L (22-29); Chloride 109 mmol/L (96-108); Cholesterol 232 mg/dL (<200); Estimated Glomerular Filt Rate > 60; Glucose Fasting 100 mg/dL (60-99); HDL Cholesterol 49 mg/dL (>40); LDL Cholesterol Calculated 121 mg/dL (<100); Sodium 142 mmol/L (135-145); Triglycerides 311 mg/dL (<150)
[2023-12-10 12:55] LABS: Parathyroid Hormone Intact 110.7 pg/mL (8.7-77.1)
[2023-12-10 13:07] LABS: Protein/Creatinine Ratio, Ur 3.38 (<0.2); Total Protein Urine Random 369 mg/dL (<12)
[2023-12-10 13:10] LABS: Calcium 9.7 mg/dL (8.4-10.2); Phosphorus 1.9 mg/dL (2.7-4.5)
[2023-12-10 13:13] LABS: Vitamin D 25-OH Total 54.2 ng/mL (>30)
[2023-12-10 13:59] LABS: SLIDE REVIEW VERIFIED
== END 2023-12-10 09:59 | disposition home or self-care (01) ==
LOC: HO.LAB 09:58
PROVIDERS: Absent Provider Internal Medicine Nephrology; PCP Internal Medicine; Visit Provider Internal Medicine
DX: N20.0 Calculus of kidney (principal); I10 Essential (primary) hypertension; E78.00 Pure hypercholesterolemia, unspecified; R79.89 Other specified abnormal findings of blood chemistry
CPT/HCPCS: 36415; 80053; 80061; 81001; 81003; 82306; 82310; 82570; 83970; 84100; 84156; 85025

== ENCOUNTER 2023-12-24 10:16 | Outpatient (AMB) | payer MEDICARE, SELFPAY ==
[2023-12-24 10:40] VITALS: BP 110/68; PULSE 76; O2SAT 97; BMI 28.8
--- NOTE | 2023-12-24 10:40 | HO.NEPHOV_ITS ---
HPI HPI Comments History of Present Illness Details I had the privilege of seeing Monica in follow-up of her nephrolithiasis. She was found have hypercalcemia from primary hyperparathyroidism and underwent parathyroidectomy by Dr. Gauthier. Her right flank pain is gone after she had ESWL and stenting. Her serum calcium has normalized. 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 Her blood pressure is currently well controlled on the current medication regimen. She does not take any nonsteroidal anti-inflammatory medications. Her renal functions are normal. She keeps up with good hydration. She does not have any chest pain, shortness of breath, proximal nocturnal dyspnea, pedal edema, fever, chills, rigors or recent urinary infections. [facility] Medical History Opioid use disorder Social History Patient Tobacco Use Status: Never used Tobacco Vital Signs 12/24/23 10:40 Height 5 ft 7 in Weight 184 lb BMI 28.8 BP 110/68 Blood Pressure Location Rt brachial Position Sitting Pulse 76 Pulse Source Pulse Oximeter Pulse Oximetry (%) 97 Oxygen Delivery Method Room Air Physical Exam Vital Signs: Last Vital Signs Pulse 76 12/24/23 10:40 BP 110/68 12/24/23 10:40 Pulse Ox 97 12/24/23 10:40 Oxygen Delivery Method Room Air 12/24/23 10:40 BMI result Body Mass Index 28.8 Const General: comfortable and no acute distress Orientation/consciousness: patient oriented x3 HEENT Head: Yes normocephalic Mouth: Normal oral and palatal mucosa present Eyes EOM: EOMs intact bilaterally Neck Neck: Yes supple Resp Auscultation: clear to auscultation bilaterally Cardio Jugular venous distension: no JVD Rate: regular rate GI Palpation (GI): Soft to palpation Auscultation: normal bowel sounds General: Yes no CVA tenderness Back/Spine/Pelvis Back: no CVA tenderness Skin General skin exam: no rashes or lesions noted Neuro General: patient oriented x3 and moves all extremities Extrem General: Yes no pedal edema Assessment & Plan Assessment & Plan (1) Renal stone: Code(s): N20.0 - Calculus of kidney (2) Hypertension: Code(s): I10 - Essential (primary) hypertension Qualifiers: Hypertension type: primary hypertension Qualified Code(s): I10 - Essential (primary) hypertension (3) Proteinuria: Code(s): R80.9 - Proteinuria, unspecified Qualifiers: Proteinuria type: other Qualified Code(s): R80.8 - Other proteinuria Plan Monica is known to have nephrolithiasis for long time. She had been on hydrochlorothiazide before. She had hypercalcemia and was found to have primary hyperparathyroidism. She underwent parathyroidectomy. His serum calcium is normal. Her blood pressure is at goal. She had right staghorn calculus and had ESWL & surgery. She will need reimaging ( has an appt in January ). She may need cinacalcet. I ordered 24 hour urine for protein. I did not make any medication changes today. I encouraged her to maintain low-sodium diet ,cut back on animal protein, and treat urinary infections appropriately. All questions answered. Follow-up given. Orders: Orders Protein, 24 Hr Urine Group Today I10 - Essential (primary) hypertension, N20.0 - Calculus of kidney, R80.9 - Proteinuria, unspecified Parathyroid Hormone Intact Today I10 - Essential (primary) hypertension, N20.0 - Calculus of kidney, R80.9 - Proteinuria, unspecified Calcium 3 Months I10 - Essential (primary) hypertension, N20.0 - Calculus of kidney, R80.9 - Proteinuria, unspecified Immunofixation Pnl, Serum Today I10 - Essential (primary) hypertension, N20.0 - Calculus of kidney, R80.8 - Other proteinuria Coding Level of Care Code Est Pt Level 4 (24822) Diagnoses Renal stone N20.0 Primary hypertension I10 Hypertension type: primary hypertension Other proteinuria R80.8 Proteinuria type: other Results Reviewed Nephrology Results: Hgb 12.6 g/dl (12.0-16.0) 12/10/23 WBC 5.9 X10*3/uL (4.8-10.8) 12/10/23 Plt Count 320 X10*3/uL (160-400) 12/10/23 Sodium 142 mmol/L (135-145) 12/10/23 Potassium 4.0 mmol/L (3.3-5.1) 12/10/23 Chloride 109 mmol/L (96-108) H 12/10/23 Carbon Dioxide 26 mmol/L (22-29) 12/10/23 BUN 11 mg/dL (9-16) 12/10/23 Creatinine 0.92 mg/dL (0.5-1.4) 12/10/23 Calcium 9.7 mg/dL (8.4-10.2) 12/10/23 Phosphorus 1.9 mg/dL (2.7-4.5) L 12/10/23 PTH Intact 110.7 pg/mL (8.7-77.1) H 12/10/23 Urine Protein 300 (3+) mg/dL (Neg-Trace) H 12/10/23 Urine Creatinine 109.29 mg/dL 12/10/23 Protein/Creatinin Ratio 3.38 (<0.2) H 12/10/23
== END 2023-12-24 11:15 | disposition home or self-care (01) ==
PROVIDERS: PCP Internal Medicine; Visit Provider Internal Medicine Nephrology
DX: N20.0 Calculus of kidney (principal); I10 Essential (primary) hypertension; R80.8 Other proteinuria
CPT/HCPCS: 99214

== ENCOUNTER → 2023-12-24 10:16 | Outpatient (BNVA) | payer MEDICARE, SELFPAY | PROVIDERS: PCP Internal Medicine; Visit Provider Internal Medicine Nephrology | DX: N20.0 Calculus of kidney (principal); R80.8 Other proteinuria; I10 Essential (primary) hypertension | CPT/HCPCS: 99212 ==

== ENCOUNTER → 2024-01-28 13:00 | Outpatient (BNV) | payer MEDICARE, SELFPAY | PROVIDERS: PCP Internal Medicine; Visit Provider Radiology Diagnostic Radiology | DX: R92.1 Mammographic calcification found on diagnostic imaging of breast (principal) | CPT/HCPCS: 76642; 77066; G0279 ==

== ENCOUNTER 2024-01-28 13:02 | Outpatient (REF) | payer MEDICARE, SELFPAY ==
--- NOTE | ~2024-01-28 | US_ITS ---
EXAMINATION: MM DIAGNOSTIC DIGITAL BREAST TOMOSYNTHESIS, BILATERAL US BREAST LIMITED, RIGHT MAMMOGRAPHY: CLINICAL INFORMATION: 6 month follow-up for calcifications in the lower central right breast, approximately 6:00 position. Also follow-up complicated cyst right breast 1:00 position seen on ultrasound and mammography. COMPARISON: Mammography: 07/25/2023, 01/21/2023, 01/15/2023, 07/18/2017, and 07/04/2017. TECHNIQUE: Digital breast tomosynthesis is performed in the following views: 2-D spot magnification right CC and ML views, as well as full-field 3-D digital bilateral CC bilateral MLO views. 2-D images were generated from the tomosynthesis. Computer-aided diagnosis was used for this study. FINDINGS: The breasts are heterogeneously dense, which may obscure small masses (ACR BI-RADS breast composition Category c). Additional views demonstrate a small group of stable approximately 5-6 punctate round calcifications in the 6:00 axis right breast, middle one third. These have a benign appearance and and there is a strong suggestion they may be vascular. These are probably benign and suitable for one-year follow-up. The parenchymal pattern is otherwise unchanged from the prior exam including the subtle nodular 6 x 5 mm focal asymmetry in the 1:00 position, lying along the nipple line in both the CC and MLO views. This will be again evaluated by ultrasound, and is known to represent a complicated cyst. No additional suspicious findings noted in the right breast. Stable nodular density in the medial left breast, which dissipated on spot compression view previously. Left breast also demonstrates scattered fibronodular densities which are stable. There are scattered dystrophic calcifications without suspicious grouping or pleomorphism. Parenchymal pattern is unchanged. There are no skin or axillary abnormalities. ULTRASOUND: CLINICAL INFORMATION: Evaluate nodular 6 x 5 mm focal asymmetry in the 1:00 position, posterior one third seen on previous diagnostic exam. COMPARISON: Ultrasound dated 07/25/2023. TECHNIQUE: Targeted sonographic evaluation was performed using a high frequency linear transducer. Attention at the retroareolar 1:00 region posterior one third was given. Selected archived documentation. FINDINGS: RIGHT BREAST: There is a mixture of fatty and fibroglandular tissue. No suspicious mass is seen. There is no pathologic acoustic shadowing. In the area of interest, 1:00 axis, 4 cm from the nipple, there is a minimally complicated cyst with good through transmission measuring 7 x 6 x 5 mm, correlating well with the focus of mammographic concern. This is unchanged allowing for differences in measurement technique. Remains probably benign and to be cautious, will be evaluated in one year via ultrasound, when the patient returns for follow-up diagnostic right mammogram also in one year to evaluate calcifications. US/US breast RT limited mamm only IMPRESSION: 1. Calcifications right breast 6:00 axis are unchanged and probably benign in morphology. They may be vascular. 1 year interval follow-up recommended to include standard magnification views. 2. Mildly complicated cyst at the 1:00 axis right breast is stable and probably benign, however will be assessed again via ultrasound in one year to ensure stability. OVERALL ASSESSMENT: Mammography: BI-RADS 3 - Probably benign finding(s) - 12 month follow-up suggested Ultrasound: BI-RADS 3 - Probably benign finding(s) - 12 month follow-up suggested RECOMMENDATION: 12 month diagnostic follow up Results were provided to the patient at time of visit by the technologist. This patient's information was entered into a reminder system with a target due date for their next mammogram.
== END 2024-01-28 13:03 | disposition home or self-care (01) ==
LOC: HO.MAMMO 13:02
PROVIDERS: PCP Internal Medicine; Visit Provider Internal Medicine
DX: R92.1 Mammographic calcification found on diagnostic imaging of breast (principal); R92.2 Inconclusive mammogram
CPT/HCPCS: 76642; 77062; 77066

== ENCOUNTER 2024-03-25 10:02 | Outpatient (REF) | payer MEDICARE, SELFPAY ==
[2024-03-25 11:15] LABS: Calcium 9.8 mg/dL (8.4-10.2)
[2024-03-25 11:31] LABS: Parathyroid Hormone Intact 116.4 pg/mL (8.7-77.1)
[2024-03-25 12:01] LABS: Total Volume 24 Hour Urine 1400 mL
[2024-03-25 12:22] LABS: Creatinine, 24Hr Urine 1.4 G/Day (1.0-2.0); Creatinine, mg/dL 97.59; Protein 24 Hr Urine 1414 mg/Day (<150); Protein mg/dL 101 mg/dL
[2024-03-30 11:49] LABS: IgA 287 mg/dL (70-320); IgG 1265 mg/dL (600-1540); IgM 75 mg/dL (50-300)
== END 2024-03-25 10:03 | disposition home or self-care (01) ==
LOC: HO.10HDL 10:02
PROVIDERS: Visit Provider Internal Medicine Nephrology
DX: R80.8 Other proteinuria (principal); I10 Essential (primary) hypertension; N20.0 Calculus of kidney
CPT/HCPCS: 36415; 82310; 82784; 83970; 84156; 86334

== ENCOUNTER 2024-03-29 15:02 | Outpatient (AMB) | payer MEDICARE, SELFPAY ==
[2024-03-29 15:15] VITALS: BP 124/72; PULSE 82; O2SAT 96; BMI 28.8
--- NOTE | 2024-03-29 15:15 | HO.NEPHOV_ITS ---
Vital Signs 03/29/24 15:15 Height 5 ft 7 in Weight 184 lb BMI 28.8 BP 124/72 Blood Pressure Location Lt brachial Position Sitting Pulse 82 Pulse Source Pulse Oximeter Pulse Oximetry (%) 96 Oxygen Delivery Method Room Air Intake Visit Reasons: 3 mo fu w/labs- CKD Staff Psychiatrist Required: No Accompanied by: Spouse Allergies bupropion [From Wellbutrin] Allergy (Intermediate, Verified 03/29/24 15:17) Rash penicillin G [PENICILLIN G] Allergy (Intermediate, Verified 03/29/24 15:17) Rash HPI Comments Details: I had the privilege of seeing Monica in follow-up of her nephrolithiasis. She was found have hypercalcemia from primary hyperparathyroidism and underwent parathyroidectomy by Dr. Gauthier. She continues to have rise in PTH. Her right flank pain is gone after she had ESWL and stenting. 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 Her blood pressure is currently well controlled on the current medication regimen. She does not take any nonsteroidal anti- inflammatory medications. Her renal functions are normal. She keeps up with good hydration. She does not have any chest pain, shortness of breath, proximal nocturnal dyspnea, pedal edema, fever, chills, rigors or recent urinary infections. She has been having significant proteinuria about which she is quite concerned about. She has gained weight [facility] Medical History Opioid use disorder Social History Patient Tobacco Use Status: Never used Tobacco Review of Systems Const All systems reviewed & are unremarkable except as noted in HPI and below Physical Exam Vital Signs: Last Vital Signs Pulse 82 03/29/24 15:15 BP 124/72 03/29/24 15:15 Pulse Ox 96 03/29/24 15:15 Oxygen Delivery Method Room Air 03/29/24 15:15 BMI result Body Mass Index 28.8 Const General: comfortable and no acute distress Orientation/consciousness: patient oriented x3 HEENT Head: Yes normocephalic Mouth: Normal oral and palatal mucosa present Eyes EOM: EOMs intact bilaterally Neck Neck: Yes supple Resp Auscultation: clear to auscultation bilaterally Cardio Jugular venous distension: no JVD Rate: regular rate GI Palpation (GI): Soft to palpation Auscultation: normal bowel sounds General: Yes no CVA tenderness Back/Spine/Pelvis Back: no CVA tenderness Skin General skin exam: no rashes or lesions noted Neuro General: patient oriented x3 and moves all extremities Extrem General: Yes no pedal edema Results Reviewed Nephrology Results: Hgb 12.6 g/dl (12.0-16.0) 12/10/23 WBC 5.9 X10*3/uL (4.8-10.8) 12/10/23 Plt Count 320 X10*3/uL (160-400) 12/10/23 Sodium 142 mmol/L (135-145) 12/10/23 Potassium 4.0 mmol/L (3.3-5.1) 12/10/23 Chloride 109 mmol/L (96-108) H 12/10/23 Carbon Dioxide 26 mmol/L (22-29) 12/10/23 BUN 11 mg/dL (9-16) 12/10/23 Creatinine 0.92 mg/dL (0.5-1.4) 12/10/23 Calcium 9.8 mg/dL (8.4-10.2) 03/25/24 Phosphorus 1.9 mg/dL (2.7-4.5) L 12/10/23 PTH Intact 116.4 pg/mL (8.7-77.1) H 03/25/24 Urine Protein 300 (3+) mg/dL (Neg-Trace) H 12/10/23 Urine Creatinine 109.29 mg/dL 12/10/23 Protein/Creatinin Ratio 3.38 (<0.2) H 12/10/23 Assessment & Plan Assessment & Plan (1) Proteinuria: Code(s): R80.9 - Proteinuria, unspecified Category: Medical Qualifiers: Proteinuria type: other Qualified Code(s): R80.8 - Other proteinuria (2) Hypertension: Code(s): I10 - Essential (primary) hypertension Category: Medical Qualifiers: Hypertension type: primary hypertension Qualified Code(s): I10 - Essen tial (primary) hypertension (3) Renal stone: Code(s): N20.0 - Calculus of kidney Category: Medical (4) Primary hyperparathyroidism: Code(s): E21.0 - Primary hyperparathyroidism Category: Medical Plan Monica is known to have nephrolithiasis for long time. She had been on hydrochlorothiazide before. She had hypercalcemia and was found to have primary hyperparathyroidism. She underwent parathyroidectomy. Her PTH is going up. Dr Gauthier has been contacted as he operated on her before. Her blood pressure is at goal. She had right staghorn calculus and had ESWL & surgery. She will need F /U reimaging . She may need cinacalcet. Her 24 hour urine for protein was reviewed. Workup ordered. Likely she will need a renal biopsy. I did not make any medication changes today. I encouraged her to maintain low-sodium diet ,cut back on animal protein, and treat urinary infections appropriately. All questions answered. Follow-up given. Orders: Orders Anti DNA DS Antibody 03/29/24 R80.8 - Other proteinuria, I10 - Essential (primary) hypertension, N20.0 - Calculus of kidney Anti Glomerular Basement Memb 03/29/24 R80.8 - Other proteinuria, I10 - Essential (primary) hypertension, N20.0 - Calculus of kidney Complement C3 03/29/24 R80.8 - Other proteinuria, I10 - Essential (primary) hypertension, N20.0 - Calculus of kidney Complement C4 03/29/24 R80.8 - Other proteinuria, I10 - Essential (primary) hypertension, N20.0 - Calculus of kidney Sjogren's Antibodies 03/29/24 R80.8 - Other proteinuria, I10 - Essential (primary) hypertension, N20.0 - Calculus of kidney Phospholipase A2 Receptor Pnl 03/29/24 R80.8 - Other proteinuria, I10 - Essential (primary) hypertension, N20.0 - Calculus of kidney Complete Blood Count Auto Diff 03/29/24 R80.8 - Other proteinuria, I10 - Essential (primary) hypertension, N20.0 - Calculus of kidney Prothrombin Time INR 03/29/24 R80.8 - Other proteinuria, I10 - Essential (primary) hypertension, N20.0 - Calculus of kidney NATHALY Reflex Titer and Pattern 03/29/24 R80.8 - Other proteinuria, I10 - Essential (primary) hypertension, N20.0 - Calculus of kidney Myeloperoxidase Antibody 03/29/24 R80.8 - Other proteinuria, I10 - Essential (primary) hypertension, N20.0 - Calculus of kidney Proteinase 3 PR3 Antibodies 03/29/24 R80.8 - Other proteinuria, I10 - Essential (primary) hypertension, N20.0 - Calculus of kidney Scleroderma 70 Antibody 03/29/24 R80.8 - Other proteinuria, I10 - Essential (primary) hypertension, N20.0 - Calculus of kidney Hepatitis B Core Antibody 03/29/24 R80.8 - Other proteinuria, I10 - Essential (primary) hypertension, N20.0 - Calculus of kidney Hepatitis B Surface Antigen 03/29/24 R80.8 - Other proteinuria, I10 - Essential (primary) hypertension, N20.0 - Calculus of kidney Protein Creatinine Ratio, Ur 03/29/24 N20.0 - Calculus of kidney, I10 - Essential (primary) hypertension, R80.8 - Other proteinuria Medications: New losartan 25 mg PO DAILY 30 tabs 6RF Coding Level of Care Code Est Pt Level 4 (14738) Diagnoses Other proteinuria R80.8 Proteinuria type: other Primary hypertension I10 Hypertension type: primary hypertension Renal stone N20.0 Primary hyperparathyroidism E21.0
== END 2024-03-29 15:47 | disposition home or self-care (01) ==
PROVIDERS: PCP Internal Medicine; Visit Provider Internal Medicine Nephrology
DX: R80.8 Other proteinuria (principal); I10 Essential (primary) hypertension; N20.0 Calculus of kidney; E21.0 Primary hyperparathyroidism
CPT/HCPCS: 99214

== ENCOUNTER → 2024-03-29 15:02 | Outpatient (BNVA) | payer MEDICARE, SELFPAY | PROVIDERS: PCP Internal Medicine; Visit Provider Internal Medicine Nephrology | DX: R80.8 Other proteinuria (principal); I10 Essential (primary) hypertension; N20.0 Calculus of kidney; E21.0 Primary hyperparathyroidism | CPT/HCPCS: 99212 ==

== ENCOUNTER 2024-04-09 12:27 | Outpatient (REF) | payer MEDICARE, SELFPAY ==
[2024-04-09 13:11] LABS: MANUAL DIFF FLAG NO
[2024-04-09 13:17] LABS: Basophils Absolute Auto 0.1 X10*3/uL (0.0-0.2); Basophils Percent Auto 0.8 % (0-2); Eosinophils Absolute Auto 0.3 X10*3/uL (0.0-0.4); Eosinophils Percent Auto 5.3 % (0-4); Hematocrit 38.2 % (37.0-47.0); Hemoglobin 12.7 g/dl (12.0-16.0); Imm Gran Abs Auto 0.02 X10*3/uL (0.00-0.03); Imm Gran Pct Auto 0.3 % (0.0-0.4); Lymphocytes Absolute Auto 2.8 X10*3/uL (1.2-4.9); Lymphocytes Percent Auto 45.8 % (20-40); Mean Corpuscular HGB Conc 33.2 g/dl (31.0-35.0); Mean Corpuscular Volume 90.3 fL (80.0-98.0); Mean Platelet Volume 10.3 fL (9.4-12.3); Monocytes Absolute Auto 0.5 X10*3/uL (0.1-1.2); Monocytes Percent Auto 7.7 % (2-11); Neutrophils Absolute Auto 2.4 x10*3/uL (2.0-8.3); Neutrophils Percent Auto 40.1 % (45-73); Platelet Count 345 X10*3/uL (160-400); Red Blood Count 4.23 X10*6/uL (4.20-5.50); Red Cell Distribution Width 14.4 % (11.0-16.0); White Blood Count 6.1 X10*3/uL (4.8-10.8)
[2024-04-09 13:20] LABS: Prothrombin Time 12.3 SEC (11.1-13.3)
[2024-04-09 13:57] LABS: HBc Num1 0.15 S/CO (0.00-0.79); HBsAGNum1 0.23 S/CO (0.00-0.99); Hepatitis B Core Antibody Nonreactive (Nonreactive); Hepatitis B Surface Antigen Negative (Negative)
[2024-04-09 13:59] LABS: Creatinine Urine 127.16 mg/dL; Protein/Creatinine Ratio, Ur 1.12 (<0.2); Total Protein Urine Random 143 mg/dL (<12)
[2024-04-12 17:18] LABS: Anti DNA DS Antibody <1 IU/mL; Anti Glomerular Basement Memb <1.0 AI; Antibody to SS-A Antigen <1.0 NEG AI (<1.0 NEG); Antibody to SS-B Antigen <1.0 NEG AI (<1.0 NEG); Myeloperoxidase Antibody <1.0 AI; Proteinase 3 PR3 Antibodies <1.0 AI; Scleroderma 70 Antibody <1.0 NEG AI (<1.0 NEG)
[2024-04-13 00:59] LABS: Complement C3 176 mg/dL (83-193)
[2024-04-14 07:42] LABS: Anti Nuclear Antibody Screen NEGATIVE (NEGATIVE)
[2024-04-17 20:39] LABS: Phospholipase A2 IgG ELISA <4 RU/mL; Phospholipase A2 IgG IFA NEGATIVE (NEGATIVE)
== END 2024-04-09 12:28 | disposition home or self-care (01) ==
LOC: HO.10HDL 12:27
PROVIDERS: Visit Provider Internal Medicine Nephrology
DX: R80.8 Other proteinuria (principal); I10 Essential (primary) hypertension; N20.0 Calculus of kidney
CPT/HCPCS: 36415; 82570; 83520; 84156; 85025; 85610; 86021; 86038; 86160; 86225; 86235; 86255; 86704; 87340

== ENCOUNTER 2024-04-26 09:47 | Outpatient (AMB) | payer MEDICARE, SELFPAY ==
[2024-04-26 09:49] VITALS: BP 108/68; PULSE 103; O2SAT 97; BMI 28.5
--- NOTE | 2024-04-26 09:49 | HO.NEPHOV ---
Vital Signs 04/26/24 09:49 Height 5 ft 7 in Weight 182 lb BMI 28.5 BP 108/68 Blood Pressure Location Lt brachial Position Sitting Pulse 103 H Pulse Source Pulse Oximeter Pulse Oximetry (%) 97 Oxygen Delivery Method Room Air Intake Visit Reasons: CKD / [employer] Social Worker Required: No Accompanied by: Self / Same As Patient Allergies bupropion [From Wellbutrin] Allergy (Intermediate, Verified 04/26/24 09:51) Rash penicillin G [PENICILLIN G] Allergy (Intermediate, Verified 04/26/24 09:51) Rash HPI Comments Details: I had the privilege of seeing Monica in follow-up of her nephrolithiasis, hypertension and proteinuria. She was found have hypercalcemia from primary hyperparathyroidism and underwent parathyroidectomy by Dr. Gauthier. She continues to have rise in PTH. Her right flank pain is gone after she had ESWL and stenting. 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 Her blood pressure is currently well controlled on the current medication regimen. She does not take any nonsteroidal anti-inflammatory medications. Her renal functions are normal. She keeps up with good hydration. She does not have any chest pain, shortness of breath, proximal nocturnal dyspnea, pedal edema, fever, chills, rigors or recent urinary infections. She has been having significant proteinuria about which she is quite concerned about. She has gained weight. Work up todate has been negative for proteinuria PFSH Medical History Opioid use disorder Social History Patient Tobacco Use Status: Never used Tobacco Review of Systems Const All systems reviewed & are unremarkable except as noted in HPI and below Physical Exam Vital Signs: Last Vital Signs Pulse 103 H 04/26/24 09:49 BP 108/68 04/26/24 09:49 Pulse Ox 97 04/26/24 09:49 Oxygen Delivery Method Room Air 04/26/24 09:49 BMI result Body Mass Index 28.5 Const General: comfortable and no acute distress Orientation/consciousness: patient oriented x3 HEENT Head: Yes normocephalic Mouth: Normal oral and palatal mucosa present Eyes EOM: EOMs intact bilaterally Neck Neck: Yes supple Resp Auscultation: clear to auscultation bilaterally Cardio Jugular venous distension: no JVD Rate: regular rate GI Palpation (GI): Soft to palpation Auscultation: normal bowel sounds General: Yes no CVA tenderness Back/Spine/Pelvis Back: no CVA tenderness Skin General skin exam: no rashes or lesions noted Neuro General: patient oriented x3 and moves all extremities Extrem General: Yes no pedal edema Results Reviewed Nephrology Results: Hgb 12.7 g/dl (12.0-16.0) 04/09/24 WBC 6.1 X10*3/uL (4.8-10.8) 04/09/24 Plt Count 345 X10*3/uL (160-400) 04/09/24 Sodium 142 mmol/L (135-145) 12/10/23 Potassium 4.0 mmol/L (3.3-5.1) 12/10/23 Chloride 109 mmol/L (96-108) H 12/10/23 Carbon Dioxide 26 mmol/L (22-29) 12/10/23 BUN 11 mg/dL (9-16) 12/10/23 Creatinine 0.92 mg/dL (0.5-1.4) 12/10/23 Calcium 9.8 mg/dL (8.4-10.2) 03/25/24 Phosphorus 1.9 mg/dL (2.7-4.5) L 12/10/23 PTH Intact 116.4 pg/mL (8.7-77.1) H 03/25/24 Urine Protein 300 (3+) mg/dL (Neg-Trace) H 12/10/23 Urine Creatinine 127.16 mg/dL 04/09/24 Protein/Creatinin Ratio 1.12 (<0.2) H 04/09/24 Assessment & Plan Assessment & Plan (1) Primary hyperparathyroidism: Code(s): E21.0 - Primary hyperparathyroidism Category: Medical (2) Proteinuria: Code(s): R80.9 - Proteinuria, unspecified Category: Medical Qualifiers: Proteinuria type: other Qualified Code(s): R80.8 - Other proteinuria (3) Hypertension: Code(s): I10 - Essential (primary) hypertension Category: Medical Qualifiers: Hypertension type: primary hypertension Qualified Code(s): I10 - Essential (primary) hypertension (4) Renal stone: Code(s): N20.0 - Calculus of kidney Category: Medical Plan Monica is known to have nephrolithiasis for long time. She had been on hydrochlorothiazide before. She had hypercalcemia and was found to have primary hyperparathyroidism. She underwent parathyroidectomy. Her PTH is going up. Dr Gauthier has been contacted as he operated on her before. Her blood pressure is at goal. She had right staghorn calculus and had ESWL & surgery. She will need F/U reimaging . She may need cinacalcet. Her 24 hour urine for protein was reviewed. Further Workup has been unyielding so far. I increased her losartan to 25 mg bid. After discussion with patient we are going to wait for the renal biopsy. I did not make any other medication changes today. I encouraged her to maintain low-sodium diet ,cut back on animal protein, and treat urinary infections appropriately. All questions answered. Follow-up given. Orders: Orders Protein Creatinine Ratio, Ur 3 Months E21.0 - Primary hyperparathyroidism, I10 - Essential (primary) hypertension, N20.0 - Calculus of kidney, R80.8 - Other proteinuria Creatinine 3 Months E21.0 - Primary hyperparathyroidism, I10 - Essential (primary) hypertension, N20.0 - Calculus of kidney, R80.8 - Other proteinuria Blood Urea Nitrogen 3 Months E21.0 - Primary hyperparathyroidism, I10 - Essential (primary) hypertension, N20.0 - Calculus of kidney, R80.8 - Other proteinuria Electrolytes 3 Months E21.0 - Primary hyperparathyroidism, I10 - Essential (primary) hypertension, N20.0 - Calculus of kidney, R80.8 - Other proteinuria Calcium 3 Months E21.0 - Primary hyperparathyroidism, I10 - Essential (primary) hypertension, N20.0 - Calculus of kidney, R80.8 - Other proteinuria Electrolytes 6 Weeks E21.0 - Primary hyperparathyroidism, I10 - Essential (primary) hypertension, N20.0 - Calculus of kidney, R80.8 - Other proteinuria Creatinine 6 Weeks E21.0 - Primary hyperparathyroidism, I10 - Essential (primary) hypertension, N20.0 - Calculus of kidney, R80.8 - Other proteinuria Blood Urea Nitrogen 6 Weeks E21.0 - Primary hyperparathyroidism, I10 - Essential (primary) hypertension, N20.0 - Calculus of kidney, R80.8 - Other proteinuria Calcium 6 Weeks E21.0 - Primary hyperparathyroidism, I10 - Essential (primary) hypertension, N20.0 - Calculus of kidney, R80.8 - Other proteinuria Coding Level of Care Code Est Pt Level 4 (38953) Diagnoses Primary hyperparathyroidism E21.0 Other proteinuria R80.8 Proteinuria type: other Primary hypertension I10 Hypertension type: primary hypertension Renal stone N20.0
== END 2024-04-26 10:14 | disposition home or self-care (01) ==
PROVIDERS: PCP Internal Medicine; Visit Provider Internal Medicine Nephrology
DX: E21.0 Primary hyperparathyroidism (principal); R80.8 Other proteinuria; I10 Essential (primary) hypertension; N20.0 Calculus of kidney
CPT/HCPCS: 99214

== ENCOUNTER → 2024-04-26 09:47 | Outpatient (BNVA) | payer MEDICARE, SELFPAY | PROVIDERS: PCP Internal Medicine; Visit Provider Internal Medicine Nephrology | DX: N20.0 Calculus of kidney (principal); E21.0 Primary hyperparathyroidism; R80.8 Other proteinuria; I10 Essential (primary) hypertension | CPT/HCPCS: 99212 ==

== ENCOUNTER 2024-06-07 11:32 | Outpatient (REF) | payer MEDICARE, SELFPAY ==
[2024-06-07 13:50] LABS: Anion Gap 11 (12-20); Blood Urea Nitrogen 12 mg/dL (9-16); Calcium 9.8 mg/dL (8.4-10.2); Carbon Dioxide 25 mmol/L (22-29); Chloride 109 mmol/L (96-108); Estimated Glomerular Filt Rate > 60; Potassium 3.8 mmol/L (3.3-5.1); Sodium 141 mmol/L (135-145)
[2024-06-07 13:51] LABS: Alanine Aminotransferase 52 U/L (0-31); Albumin Level 4.3 g/dL (3.5-5.0); Alkaline Phosphatase 101 U/L (39-117); Anion Gap 12 (12-20); Aspartate Amino Transferase 53 U/L (5-31); Bilirubin Total 0.6 mg/dL (0.0-1.0); Blood Urea Nitrogen 12 mg/dL (9-16); Calcium 9.9 mg/dL (8.4-10.2); Carbon Dioxide 25 mmol/L (22-29); Chloride 108 mmol/L (96-108); Estimated Glomerular Filt Rate > 60; Glucose Random 113 mg/dL (60-115); Potassium 3.8 mmol/L (3.3-5.1); Sodium 141 mmol/L (135-145); Total Protein 7.9 g/dL (6.5-8.0)
== END 2024-06-07 11:33 | disposition home or self-care (01) ==
LOC: HO.10HDL 11:32
PROVIDERS: Referring Provider Internal Medicine; Visit Provider Internal Medicine Nephrology
DX: N20.0 Calculus of kidney (principal); R80.8 Other proteinuria; E21.0 Primary hyperparathyroidism; I10 Essential (primary) hypertension; E78.00 Pure hypercholesterolemia, unspecified
CPT/HCPCS: 36415; 80051; 80053; 82310; 82565; 84520

== ENCOUNTER 2024-07-21 11:02 | Outpatient (REF) | payer MEDICARE, SELFPAY ==
[2024-07-21 13:55] LABS: Anion Gap 12 (12-20); Blood Urea Nitrogen 14 mg/dL (9-16); Calcium 9.7 mg/dL (8.4-10.2); Carbon Dioxide 24 mmol/L (22-29); Chloride 107 mmol/L (96-108); Estimated Glomerular Filt Rate > 60; Potassium 4.1 mmol/L (3.3-5.1); Sodium 139 mmol/L (135-145)
[2024-07-21 14:25] LABS: Creatinine Urine 121.96 mg/dL; Protein/Creatinine Ratio, Ur 1.08 (<0.2); Total Protein Urine Random 132 mg/dL (<12)
== END 2024-07-21 11:03 | disposition home or self-care (01) ==
LOC: HO.10HDL 11:02
PROVIDERS: Visit Provider Internal Medicine Nephrology
DX: E21.0 Primary hyperparathyroidism (principal); R80.8 Other proteinuria; I10 Essential (primary) hypertension; N20.0 Calculus of kidney
CPT/HCPCS: 36415; 80051; 82310; 82565; 82570; 84156; 84520

== ENCOUNTER 2024-07-28 10:24 | Outpatient (AMB) | payer MEDICARE, SELFPAY ==
--- NOTE | 2024-07-28 10:26 | HO.NEPHOV ---
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 She was found have hypercalcemia from primary hyperparathyroidism and underwent parathyroidectomy by Dr. Gauthier. She continues to have rise in PTH. Her right flank pain is gone after she had ESWL and stenting. 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 Her blood pressure is currently well controlled on the current medication regimen. She does not take any nonsteroidal anti-inflammatory medications. Her renal functions are normal. She keeps up with good hydration. She does not have any chest pain, shortness of breath, proximal nocturnal dyspnea, pedal edema, fever, chills, rigors or recent urinary infections. She has been having significant proteinuria about which she is quite concerned about. She has gained weight. Work up todate has been negative for proteinuria. She has not had a renal biopsy yet [facility] Medical History Opioid use disorder Social History Patient Tobacco Use Status: Never used Tobacco Review of Systems Const All systems reviewed & are unremarkable except as noted in HPI and below Physical Exam Vital Signs: Last Vital Signs Pulse 91 07/28/24 10:27 BP 130/70 07/28/24 10:27 Pulse Ox 96 07/28/24 10:27 Oxygen Delivery Method Room Air 07/28/24 10:27 BMI result Body Mass Index 29.5 Const General: comfortable and no acute distress Orientation/consciousness: patient oriented x3 HEENT Head: Yes normocephalic Mouth: Normal oral and palatal mucosa present Eyes EOM: EOMs intact bilaterally Neck Neck: Yes supple Resp Auscultation: clear to auscultation bilaterally Cardio Jugular venous distension: no JVD Rate: regular rate GI Palpation (GI): Soft to palpation Auscultation: normal bowel sounds General: Yes no CVA tenderness Back/Spine/Pelvis Back: no CVA tenderness Skin General skin exam: no rashes or lesions noted Neuro General: patient oriented x3 and moves all extremities Extrem General: Yes no pedal edema Results Reviewed Nephrology Results: Hgb 12.7 g/dl (12.0-16.0) 04/09/24 WBC 6.1 X10*3/uL (4.8-10.8) 04/09/24 Plt Count 345 X10*3/uL (160-400) 04/09/24 Sodium 139 mmol/L (135-145) 07/21/24 Potassium 4.1 mmol/L (3.3-5.1) 07/21/24 Chloride 107 mmol/L (96-108) 07/21/24 Carbon Dioxide 24 mmol/L (22-29) 07/21/24 BUN 14 mg/dL (9-16) 07/21/24 Creatinine 0.75 mg/dL (0.5-1.4) 07/21/24 Calcium 9.7 mg/dL (8.4-10.2) 07/21/24 PTH Intact 116.4 pg/mL (8.7-77.1) H 03/25/24 Urine Creatinine 121.96 mg/dL 07/21/24 Protein/Creatinin Ratio 1.08 (<0.2) H 07/21/24 Assessment & Plan Assessment & Plan (1) Primary hyperparathyroidism: Code(s): E21.0 - Primary hyperparathyroidism Category: Medical (2) Proteinuria: Code(s): R80.9 - Proteinuria, unspecified Category: Medical Qualifiers: Proteinuria type: other Qualified Code(s): R80.8 - Other proteinuria (3) Hypertension: Code(s): I10 - Essential (primary) hypertension Category: Medical Qualifiers: Hypertension type: primary hypertension Qualified Code(s): I10 - Essential (primary) hypertension (4) Renal stone: Code(s): N20.0 - Calculus of kidney Category: Medical Plan Monica is known to have nephrolithiasis for long time. She had been on hydrochlorothiazide before. She had hypercalcemia and was found to have primary hyperparathyroidism. She underwent parathyroidectomy. Her PTH is going up. Dr Gauthier has been contacted as he operated on her before. I also ordered Setamibi scan. Her blood pressure is at goal. She had right staghorn calculus and had ESWL & surgery. She will need F/U reimaging . She may need cinacalcet. Her 24 hour urine for protein was reviewed. I increased her losartan to 50 mg bid. After discussion with patient we are going to wait for the renal biopsy. I did not make any other medication changes today. I encouraged her to maintain low-sodium diet ,cut back on animal protein, and treat urinary infections appropriately. All questions answered. Follow-up given Orders: Orders NM parathyroid Today E21.0 - Primary hyperparathyroidism Creatinine 3 Months E21.0 - Primary hyperparathyroidism Blood Urea Nitrogen 3 Months E21.0 - Primary hyperparathyroidism Electrolytes 3 Months E21.0 - Primary hyperparathyroidism Protein Creatinine Ratio, Ur 3 Months E21.0 - Primary hyperparathyroidism TSH reflex Free T4 3 Months E21.0 - Primary hyperparathyroidism Referrals General Surgery Referral E21.0 - Primary hyperparathyroidism Medications: Changed From losartan 25 mg PO BID 90 days 180 tabs 6RF To losartan 50 mg PO BID 90 days 180 tabs 6RF Coding Level of Care Code Est Pt Level 4 (94645) Diagnoses Primary hyperparathyroidism E21.0 Other proteinuria R80.8 Proteinuria type: other Primary hypertension I10 Hypertension type: primary hypertension Renal stone N20.0
[2024-07-28 10:27] VITALS: BP 130/70; PULSE 91; O2SAT 96; BMI 29.5
== END 2024-07-28 10:58 | disposition home or self-care (01) ==
PROVIDERS: PCP Internal Medicine; Visit Provider Internal Medicine Nephrology
DX: E21.0 Primary hyperparathyroidism (principal); R80.8 Other proteinuria; I10 Essential (primary) hypertension; N20.0 Calculus of kidney
CPT/HCPCS: 99214

== ENCOUNTER → 2024-07-28 10:24 | Outpatient (BNVA) | payer MEDICARE, SELFPAY | PROVIDERS: PCP Internal Medicine; Visit Provider Internal Medicine Nephrology | DX: I10 Essential (primary) hypertension (principal); R80.9 Proteinuria, unspecified; E21.0 Primary hyperparathyroidism; R80.8 Other proteinuria; N20.0 Calculus of kidney; Z87.442 Personal history of urinary calculi | CPT/HCPCS: 99212 ==

== ENCOUNTER 2024-10-29 10:42 | Outpatient (REF) | payer MEDICARE, SELFPAY ==
--- OUTSIDE RECORDS SUMMARY | 2024-10-29 11:32 | XMS_ITS | Encounter Summary ---
Author Organization [facility] Address [address] [place] [address] Phone Care Team Providers Care Flame Annealing Machine Operator Name Role Phone John Chaudhry MD Primary Care Provider [phone] Encounter Details Date Type Department Care Team (Late st Contact Info) Description 11/07/2022 Telephone [facility] [address] [place] [address] Alfreda Wan MA Social History Tobacco Use Types Packs/Day Years Used Date Smoking Tobacco: Former Cigarettes Q uit: 09/15/2013 Smokeless Tobacco: Never Comments:Smoking History Inf o:Every day Alcohol Use Standard Drinks/Week Comments No 0 (1 standard drink = 0.6 oz pur e alcohol) Comments Unknown Sex and Gender Information Value Date Recorded Sex Assigned at Not on file Legal Sex Female 5:00 PM EST Gender Identity Not on file Sexual Orientation Not on file documented as of this encounter Miscellaneous Notes * Telephone Encounter - Deidra Farmer MA - 11/27/2022 5:17 PM EDT Hold HCTZ until next appt Per Dr Blair. Pt Notified * Telephone Encounter - Xenia Hanks - 11/18/2022 9:[address] Blair was not available on this date, Dr. Ovalle was his coverage. * Telephone Encounter - Xenia Hanks - 11/14/2022 1:09 PM EST Pt called again to follow up on her message regarding medication HCTZ. She had surgery two weeks ago for thyroid and she would like to know if she has to continue with HCTZ. Please advise. * Telephone Encounter - Alfreda Wan MA - 11/07/2022 11:01 AM EST Pt called she has surgery for her thyroids last week and would like to know if she still has to continue taking HCTZ. Please advise Thank you documented in this encounter Plan of Treatment Not on file documented as of this encounter Visit Diagnoses Not on filedocumented in this encounter Care Teams Flame Annealing Machine Operator Relationship Specialty Start Date End Date John Chaudhry MD [address] [place] [address] [id number] [facility] P[facility] - General Internal Medicine 12/15/20 documented as of this encounter
--- OUTSIDE RECORDS SUMMARY | 2024-10-29 11:32 | XMS_ITS | Clinical Summary ---
Author Organization [facility] Address [address] [place] [address] [address] [place] [address] Phone Care Team Providers Care Assembly Inspector Helper Name Role Phone John Chaudhry MD Primary Care Provider [phone] Allergies Active Allergy Reactions Criticality Noted Date Comments Penicillin V Other (see comments) 12/15/2020 Bupropion Other (see comments) 12/15/2020 Medications atenolol (TENORMIN) 25 MG tablet Take 25 mg by mouth 1 (one) time each day Active pregabalin (LYRICA) 150 MG capsule Take 1 capsule by mouth 1 (one) time each day Active simvastatin (ZOCOR) 40 MG tablet Take 1 tablet by mouth 1 (one) time each day Active FLUoxetine (PROzac) 20 MG capsule Take 1.5 capsules by mouth 1 (one) time each day Active montelukast (SINGULAIR) 10 MG tablet Take 1 tablet by mouth 1 (one) time each day 10/23/2020 Active Multiple Vitamin (multivitamin) tablet Take 1 tablet by mouth 1 (one) time each day Active cholecalciferol (VITAMIN D-3 SUPER STRENGTH) 50 MCG (2000 UT) tablet Take 2,000 Units by mouth 1 (one) time each day Active hydroCHLOROthia zide 25 MG tablet Take 0.5 tablets (12.5 mg total) by mouth 1 (one) time each day 45 tablet 3 10/28/2022 Active Active Problems Problem Noted Date Diagnosed Date Essential hypertension 12/15/2020 Hypercalcemia 12/15/2020 Renal stone 12/15/2020 Family History Medical History Relation Comments Hypertension Father Stroke Father Cancer Mother Hypertension Mother Relation Status Comments Father Mother Social History Tobacco Use Types Packs/Day Years Used Date Smoking Tobacco: Former Cigarettes Q uit: 09/15/2013 Smokeless Tobacco: Never Tobacco Cessation:Counseling Given: Not Answered Comments:Smoking History Info:Every day Alcohol Use Standard Drinks/Week Comments No 0 (1 standard drink = 0.6 oz pur e alcohol) Comments Unknown Sex and Gender Information Value Date Recorded Sex Assigned at Not on file Legal Sex Female 5:00 PM EST Gender Identity Not on file Sexual Orientation Not on file Last Filed Vital Signs Vital Sign Reading Time Taken Comments Blood Pressure 124/63 06/11/2023 1:20 PM EDT Pulse 78 06/11/2023 1:20 PM EDT Temperature - - Respiratory Rate - - Oxygen Saturation 96% 06/11/2023 1:20 PM EDT Inhaled Oxygen Concentration - - Weight 81.1 kg (178 lb 12.8 oz) 06/11/2023 1:20 PM EDT Height 170.2 cm (5' 7 ) 12/15/2019 12:0 0 PM EDT Body Mass Index 28 12/15/2019 12:00 PM EDT Plan of Treatment Health Maintenance Due Date Last Done Comments Breast Cancer Screening 1955 Pneumococcal Vaccine: 65+ Ye ars (1 of 2 - PCV) 1962 Colorectal Cancer Screening: Annual FOBT 2005 Colorectal Cancer Screening: Colonoscopy 2005 Colorectal Cancer Screening: Sigmoidoscopy 2005 Influenza Vaccine (#1) 2024 Hepatitis B Vaccine Aged Out No longe r eligible based on patient's age to complete this topic Insurance MEDICARE [facility] MEDICARE [facility] Care Teams Assembly Inspector Helper Relationship Specialty Start Date End Date John Chaudhry MD [address] [place] [address] [address] [place], [place] PCP - General Internal Medicine 12/15/20
--- OUTSIDE RECORDS SUMMARY | 2024-10-29 11:32 | XMS_ITS | Encounter Summary ---
Author Organization [facility] Address [address] [place] [address] Phone Care Team Providers Care Poultry Farmworker Name Role Phone John Chaudhry MD Primary Care Provider [phone] Encounter Details Date Type Department Care Team (Late st Contact Info) Description 08/20/2022 Telephone [facility] [address] [place] [address] Toño Blair MD Social History Tobacco Use Types Packs/Day Years [...] encounter Miscellaneous Notes * Telephone Encounter - Alfreda Wan - 08/20/2022 1:08 PM EST Pt called, sh would like to review the results of her parathyroid scan with you. Please call her back at [phone] Thank you documented in this encounter Plan of Treatment Not on file documented as of this encounter Visit Diagnoses Not on filedocumented in this encounter Care Teams Poultry Farmworker Relationship Specialty Start Date End Date John Chaudhry MD [address] [place] PCP - General Internal Medicine 12/15/20 documented as of this encounter
[2024-10-29 11:49] LABS: Anion Gap 14 (12-20); Blood Urea Nitrogen 12 mg/dL (9-16); Carbon Dioxide 22 mmol/L (22-29); Chloride 109 mmol/L (96-108); Estimated Glomerular Filt Rate > 60; Potassium 4.2 mmol/L (3.3-5.1); Sodium 141 mmol/L (135-145)
[2024-10-29 12:04] LABS: TSH reflex Free T4 1.88 uIU/mL (0.32-4.0)
[2024-10-29 12:34] LABS: Protein/Creatinine Ratio, Ur 1.22 (<0.2); Total Protein Urine Random 189 mg/dL (<12)
== END 2024-10-29 10:43 | disposition home or self-care (01) ==
LOC: HO.10HDL 10:42
PROVIDERS: Visit Provider Internal Medicine Nephrology
DX: E21.0 Primary hyperparathyroidism (principal)
CPT/HCPCS: 36415; 80051; 82565; 82570; 84156; 84443; 84520

== ENCOUNTER 2024-11-03 12:20 | Outpatient (REF) | payer MEDICARE, SELFPAY ==
--- OUTSIDE RECORDS SUMMARY | 2024-11-03 12:43 | XMS_ITS | Clinical Summary ---
Author Organization [facility] Address [address] [place] [address] [address] [place] [address] Phone Care Team Providers Care Office Supervisor Name Role Phone John Chaudhry MD Primary Care Provider [phone] Allergies Active Allergy Reactions Criticality Noted Date [...] age to complete this topic Insurance MEDICARE [facility] MEDICARE [facility] Care Teams Office Supervisor Relationship Specialty Start Date End Date John Chaudhry MD [address] [place] [address] [address] [place], [place] PCP - General Internal Medicine 12/15/20
--- OUTSIDE RECORDS SUMMARY | 2024-11-03 12:43 | XMS_ITS | Encounter Summary ---
Author Organization [facility] Address [address] [place] [address] Phone Care Team Providers Care Sack Cleaner Name Role Phone John Chaudhry MD Primary Care Provider [phone] Encounter Details Date Type Department Care Team (Late st Contact Info) Description 11/07/2022 Telephone [facility] [address] [place] [address] Alfreda Wan MA Social History [...] on filedocumented in this encounter Care Teams Sack Cleaner Relationship Specialty Start Date End Date John Chaudhry MD [address] [place] [address] [address] [facility] PCP - General Internal Medicine 12/15/20 documented as of this encounter
--- OUTSIDE RECORDS SUMMARY | 2024-11-03 12:44 | XMS_ITS | Encounter Summary ---
Author Organization [facility] Address [address] [place] [address] Phone Care Team Providers Care Metal Bonder Name Role Phone John Chaudhry MD Primary Care Provider [phone] Encounter Details Date Type Department Care Team (Late st Contact Info) Description 08/20/2022 Telephone [facility] [address] [place] [address] Toño Blair MD Social History [...] with you. Please call her back at [phone] Thank you documented in this encounter Plan of Treatment Not on file documented as of this encounter Visit Diagnoses Not on filedocumented in this encounter Care Teams Metal Bonder Relationship Specialty Start Date End Date John Chaudhry MD [address] [place] PCP - General Internal Medicine 12/15/20 documented as of this encounter
[2024-11-03 14:03] LABS: Appearance Urine Clear; Color Urine Yellow; Glucose Urine UA Negative (Negative); Leukocyte Esterase Urine Negative (Negative); Nitrite Urine Negative (Negative); PH 6.5 (5.0-9.0); Specific Gravity - Urine >= 1.030 (1.005-1.025); UMIC TRIGGER UA YES; Urine Blood Negative (Negative); Urine Ketones Negative (Negative); Urine Protein 300 (3+) mg/dL (Neg-Trace)
[2024-11-03 14:15] LABS: Bacteria Urine None Seen (None Seen); Calcium Oxalate Crystals Urine Present; Hyaline Casts Urine 0-2 /LPF (0-2); RBC Urine 0-2 /HPF (0-2); WBC Urine 0-5 /HPF (0-5)
[2024-11-03 14:24] LABS: Anion Gap 12 (12-20); Blood Urea Nitrogen 13 mg/dL (9-16); Calcium 9.8 mg/dL (8.4-10.2); Carbon Dioxide 27 mmol/L (22-29); Chloride 107 mmol/L (96-108); Estimated Glomerular Filt Rate > 60; Sodium 142 mmol/L (135-145)
[2024-11-03 14:27] LABS: Parathyroid Hormone Intact 97.4 pg/mL (8.7-77.1)
[2024-11-03 14:29] LABS: Creatinine Urine 200.89 mg/dL
[2024-11-03 14:43] LABS: Protein/Creatinine Ratio, Ur 1.03 (<0.2); Total Protein Urine Random 206 mg/dL (<12)
== END 2024-11-03 12:21 | disposition home or self-care (01) ==
LOC: HO.LAB 12:20
PROVIDERS: PCP Internal Medicine; Visit Provider Internal Medicine Nephrology
DX: R80.8 Other proteinuria (principal); E21.0 Primary hyperparathyroidism; N20.0 Calculus of kidney; I10 Essential (primary) hypertension
CPT/HCPCS: 36415; 80051; 81001; 81003; 82310; 82565; 82570; 83970; 84156; 84520

== ENCOUNTER 2024-11-26 10:23 | Outpatient (AMB) | payer MEDICARE, SELFPAY ==
--- NOTE | 2024-11-26 10:28 | HO.NEPHOV_ITS ---
Vital Signs 11/26/24 10:29 Height 5 ft 7 in Weight 189 lb 2 oz BMI 29.6 BP 122/70 Blood Pressure Location Lt brachial Position Sitting Pulse 96 Pulse Source Pulse Oximeter Pulse Oximetry (%) 96 Oxygen Delivery Method Room Air Intake Visit Reasons: 4mon follow up w/labs-Conf Manager Study Required: No Accompanied by: Self / Same As Patient Allergies bupropion [From Wellbutrin] Allergy (Intermediate, Verified 11/26/24 10:29) Rash penicillin G [PENICILLIN G] Allergy (Intermediate, Verified 11/26/24 10:29) Rash HPI Comments Details: Monica was seen in follow-up of her nephrolithiasis, hypertension and proteinuria. She was found have hypercalcemia from primary hyperparathyroidism and underwent parathyroidectomy by Dr. Gauthier. She continued to have rise in PTH. 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 Her PTH is improving. Her right flank pain is gone after she had ESWL and stenting. 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 Her blood pressure is currently well controlled on the current medication regimen. She does not take any nonsteroidal anti-inflammatory medications. Her renal functions are normal. She keeps up with good hydration. She does not have any chest pain, shortness of breath, proximal nocturnal dyspnea, pedal edema, fever, chills, rigors or recent urinary infections. She had significant proteinuria but better on losartan. She has gained weight. Work up todate has been negative for proteinuria. She has not had a renal biopsy yet [facility] Medical History Opioid use disorder Social History Patient Tobacco Use Status: Never used Tobacco Review of Systems Const All systems reviewed & are unremarkable except as noted in HPI and below Physical Exam Vital Signs: Last Vital Signs Pulse 96 11/26/24 10:29 BP 122/70 11/26/24 10:29 Pulse Ox 96 11/26/24 10:29 Oxygen Delivery Method Room Air 11/26/24 10:29 BMI result Body Mass Index 29.6 Const General: comfortable and no acute distress Orientation/consciousness: patient oriented x3 HEENT Head: Yes normocephalic Mouth: Normal oral and palatal mucosa present Eyes EOM: EOMs intact bilaterally Neck Neck: Yes supple Resp Auscultation: clear to auscultation bilaterally Cardio Jugular venous distension: no JVD Rate: regular rate GI Palpation (GI): Soft to palpation Auscultation: normal bowel sounds General: Yes no CVA tenderness Back/Spine/Pelvis Back: no CVA tenderness Skin General skin exam: no rashes or lesions noted Neuro General: patient oriented x3 and moves all extremities Extrem General: Yes no pedal edema Results Reviewed Nephrology Results: Hgb 12.7 g/dl (12.0-16.0) 04/09/24 WBC 6.1 X10*3/uL (4.8-10.8) 04/09/24 Plt Count 345 X10*3/uL (160-400) 04/09/24 Sodium 142 mmol/L (135-145) 11/03/24 Potassium 4.0 mmol/L (3.3-5.1) 11/03/24 Chloride 107 mmol/L (96-108) 11/03/24 Carbon Dioxide 27 mmol/L (22-29) 11/03/24 BUN 13 mg/dL (9-16) 11/03/24 Creatinine 0.81 mg/dL (0.5-1.4) 11/03/24 Calcium 9.8 mg/dL (8.4-10.2) 11/03/24 PTH Intact 97.4 pg/mL (8.7-77.1) H 11/03/24 Urine Protein 300 (3+) mg/dL (Neg-Trace) H 11/03/24 Urine Creatinine 200.89 mg/dL 11/03/24 Protein/Creatinin Ratio 1.03 (<0.2) H 11/03/24 Assessment & Plan Assessment & Plan (1) Proteinuria: Code(s): R80.9 - Proteinuria, unspecified Category: Medical Qualifiers: Proteinuria type: other Qualified Code(s): R80.8 - Other proteinuria (2) Primary hyperparathyroidism: Code(s): E21.0 - Primary hyperparathyroidism Category: Medical (3) Hypertension: Code(s): I10 - Essential (primary) hypertension Category: Medical Qualifiers: Hypertension type: primary hypertension Qualified Code(s): I10 - Essential (primary) hypertension (4) Renal stone: Code(s): N20.0 - Calculus of kidney Category: Medical Plan Monica is known to have nephrolithiasis for long time. She had been on hydrochlorothiazide before. She had hypercalcemia and was found to have primary hyperparathyroidism. She underwent parathyroidectomy. Her PTH had been going up. 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 There is no indication yet for initiation of sensipar. Her blood pressure is at goal. She had right staghorn calculus and had ESWL & surgery. She will need F/U reimaging . Her 24 hour urine for protein was reviewed. Her U Protein improved on losartan to 50 mg bid. After discussion with patient we are going to wait for the renal biopsy. I did not make any other medication changes today. I encouraged her to maintain low-sodium diet ,cut back on animal protein, and treat urinary infections appropriately. All questions answered. Follow-up given Orders: Orders Protein Creatinine Ratio, Ur 3 Months R80.8 - Other proteinuria Coding Level of Care Code Est Pt Level 4 (15620) Diagnoses Other proteinuria R80.8 Proteinuria type: other Primary hyperparathyroidism E21.0 Primary hypertension I10 Hypertension type: primary hypertension Renal stone N20.0
[2024-11-26 10:29] VITALS: BP 122/70; PULSE 96; O2SAT 96; BMI 29.6
--- OUTSIDE RECORDS SUMMARY | 2024-11-26 11:44 | XMS_ITS | Clinical Summary ---
Author Organization [facility] Address [address] [place] [address] [address] [place] [address] Phone Care Team Providers Care Pharmacy Resident Name Role Phone John Chaudhry MD Primary Care Provider [phone] Allergies Active Allergy Reactions Criticality Noted Date [...] age to complete this topic Insurance MEDICARE [facility]ICARE [facility] Care Teams Pharmacy Resident Relationship Specialty Start Date End Date John Chaudhry MD [address] [place] [address] [address] [place], [place] PCP - General Internal Medicine 12/15/20
--- OUTSIDE RECORDS SUMMARY | 2024-11-26 11:44 | XMS_ITS | Encounter Summary ---
Author Organization [facility] Address [address] [place] [address] Phone Care Team Providers Care Director Rehabilitation Program Name Role Phone John Chaudhry MD Primary Care Provider [phone] Encounter Details Date Type Department Care Team (Late st Contact Info) Description 11/07/2022 Telephone [facility] [address] [place] [address] Alfreda Wan MA Social History [...] on filedocumented in this encounter Care Teams Director Rehabilitation Program Relationship Specialty Start Date End Date John Chaudhry MD [address] [place] [address] [address] [facility] PCP - General Internal Medicine 12/15/20 documented as of this encounter
--- OUTSIDE RECORDS SUMMARY | 2024-11-26 11:44 | XMS_ITS | Encounter Summary ---
Author Organization [facility] Address [address] [place] [address] Phone Care Team Providers Care Mimeograph Operator Name Role Phone John Chaudhry MD Primary Care Provider [phone] Encounter Details Date Type Department Care Team (Late st Contact Info) Description 08/20/2022 Telephone [facility] [address] [place] [address] Toño Blair MD Social History [...] with you. Please call her back at [phone] Thank you documented in this encounter Plan of Treatment Not on file documented as of this encounter Visit Diagnoses Not on filedocumented in this encounter Care Teams Mimeograph Operator Relationship Specialty Start Date End Date John Chaudhry MD [address] [place] PCP - General Internal Medicine 12/15/20 documented as of this encounter
== END 2024-11-26 10:54 | disposition home or self-care (01) ==
LOC: HO.HKA 10:24
PROVIDERS: PCP Internal Medicine; Visit Provider Internal Medicine Nephrology
DX: R80.8 Other proteinuria (principal); E21.0 Primary hyperparathyroidism; I10 Essential (primary) hypertension; N20.0 Calculus of kidney
CPT/HCPCS: 99214

== ENCOUNTER → 2024-11-26 10:23 | Outpatient (BNVA) | payer MEDICARE, SELFPAY | PROVIDERS: PCP Internal Medicine; Visit Provider Internal Medicine Nephrology | DX: I10 Essential (primary) hypertension (principal); N20.0 Calculus of kidney; R80.8 Other proteinuria; E21.0 Primary hyperparathyroidism | CPT/HCPCS: 99212 ==

== ENCOUNTER 2025-01-27 12:30 | Outpatient (REF) | payer MEDICARE, SELFPAY ==
--- NOTE | ~2025-01-27 | MM_ITS ---
EXAMINATION: MM DIAGNOSTIC DIGITAL BREAST TOMOSYNTHESIS, BILATERAL Limited right breast ultrasound. CLINICAL INFORMATION: 18 month follow-up for hypoechoic area in the right breast at 1:00 4 7 m from the nipple. Two-year follow-up for right breast calcifications. COMPARISON: Mammography: Comparison is made with relevant prior exams. TECHNIQUE: Digital breast mammography with tomosynthesis is performed in both the craniocaudal and mediolateral oblique views along with computer-aided detection (CAD). FINDINGS: There are scattered areas of fibroglandular density (ACR BI-RADS breast composition Category b). Bilateral scattered focal asymmetries are stable. Right: Scattered calcifications in the retroareolar region are not significantly changed from prior magnification views dating back for two years and therefore benign. There are no significant masses, abnormal calcifications, or other abnormalities. Targeted color Doppler ultrasound scanning in the right breast at 1:00 4 cm from nipple demonstrates a hypoechoic oval solid mass versus complicated cyst measuring 4 x 3 x 2 mm. Left: No suspicious masses calcifications or other abnormal findings. Results are provided to the patient at time of visit by the technologist. MM/MM tomosynthesis diagnostic BI IMPRESSION: Right: 1. Calcifications in the retroareolar region on the right breast are stable dating back for 2 years on magnification views. Benign. 2. Hypoechoic solid mass versus complicated cyst at 1:00 4 cm from the nipple slightly decreased in size to not significantly changed for 18 months. Recommend 12 month follow-up to demonstrate 2 years of stability when the patient is due for bilateral mammography. Left: Benign. ASSESSMENT: BI-RADS BI-RADS 3 - Probably benign finding(s) - 12 month follow-up suggested RECOMMENDATION: 1 year F/U (accession [id number]), 12 month diagnostic follow up (accession [id number]) This patient's information was entered into a reminder system with a target due date for their next mammogram. Electronically signed by: Tania Mcdaniel DO 01/27/2025 01:40 PM EDT
--- OUTSIDE RECORDS SUMMARY | 2025-01-27 13:16 | XMS_ITS | Encounter Summary ---
Author Organization [facility] Address [address] [place] [address] Phone Care Team Providers Care Electric Detector Operator Name Role Phone John Chaudhry MD Primary Care Provider [phone] Encounter Details Date Type Department Care Team (Late st Contact Info) Description 11/07/2022 Telephone [facility] [address] [place] [address] Alfreda Wan MA Social History [...] on filedocumented in this encounter Care Teams Electric Detector Operator Relationship Specialty Start Date End Date John Chaudhry MD [address] [place] [address] [address] [facility] PCP - General Internal Medicine 12/15/20 documented as of this encounter
--- OUTSIDE RECORDS SUMMARY | 2025-01-27 13:16 | XMS_ITS | Encounter Summary ---
Author Organization [facility] Address [address] [place] [address] Phone Care Team Providers Care Manager Sports Name Role Phone John Chaudhry MD Primary Care Provider [phone] Encounter Details Date Type Department Care Team (Late st Contact Info) Description 08/20/2022 Telephone [facility] [address] [place] [address] Toño Blair MD Social History [...] with you. Please call her back at [phone] Thank you documented in this encounter Plan of Treatment Not on file documented as of this encounter Visit Diagnoses Not on filedocumented in this encounter Care Teams Manager Sports Relationship Specialty Start Date End Date John Chaudhry MD [address] [place] PCP - General Internal Medicine 12/15/20 documented as of this encounter
--- OUTSIDE RECORDS SUMMARY | 2025-01-27 13:16 | XMS_ITS | Clinical Summary ---
Author Organization [facility] Address [address] [place] [address] [address] [place] [address] Phone Care Team Providers Care Degreasing Solution Mixer Name Role Phone John Chaudhry MD Primary Care Provider [phone] Allergies Active Allergy Reactions Criticality Noted Date [...] Comments Breast Cancer Screening 1955 Pneumococcal Vaccine: 50+ Ye ars (1 of 2 - PCV) 1975 Colorectal Cancer Screening: Annual FOBT 2005 Colorectal Cancer Screening: Colonoscopy 2005 Colorectal Cancer Screening: Sigmoidoscopy 2005 Influenza Vaccine (Season Ended) 2025 Hepatitis B Vaccine Aged Out No longe r eligible based on patient's age to complete this topic Insurance Medicare [facility] Medicare [facility] Care Teams Degreasing Solution Mixer Relationship Specialty Start Date End Date John Chaudhry MD [address] [place], [place] PCP - General Internal Medicine 12/15/20
== END 2025-01-27 12:31 | disposition home or self-care (01) ==
LOC: HO.MAMMO 12:30
PROVIDERS: PCP Internal Medicine; Visit Provider Internal Medicine
DX: R92.1 Mammographic calcification found on diagnostic imaging of breast (principal); R92.2 Inconclusive mammogram
CPT/HCPCS: 76642; 77062; 77066

== ENCOUNTER → 2025-01-27 12:30 | Outpatient (BNV) | payer MEDICARE, SELFPAY | PROVIDERS: PCP Internal Medicine; Visit Provider Internal Medicine | DX: N60.01 Solitary cyst of right breast (principal); R92.1 Mammographic calcification found on diagnostic imaging of breast | CPT/HCPCS: 76642; 77066; G0279 ==

== ENCOUNTER 2025-02-04 13:30 | Outpatient (AMB) | payer MEDICARE, SELFPAY ==
--- NOTE | 2025-02-04 13:31 | A.OFFPC_ITS ---
Vital Signs 02/04/25 13:32 Height 5 ft 7 in Weight 188 lb BMI 29.4 BP 126/80 Blood Pressure Location Lt brachial Position Sitting Pulse 105 H Pulse Source Pulse Oximeter Temp 97.7 F Temp Source Axillary Pulse Oximetry (%) 97 Oxygen Delivery Method Room Air Intake Visit Reasons: Routine Distribution Designer Required: No Accompanied by: Self / Same As Patient Allergies bupropion [From Wellbutrin] Allergy (Intermediate, Verified 02/04/25 13:32) Rash penicillin G [PENICILLIN G] Allergy (Intermediate, Verified 02/04/25 13:32) Rash Tobacco use date assessed: 02/04/25 Fall risk assessment: No Falls in past year Last assessed Fall Risk: 02/04/25 Dental Screening Dental Screen Date: 02/04/25 Did you have a dental visit in the last 12 months?: Yes Did you have a dental problem in the last 6 months where you did not have access to dental care?: No HPI HPI Comments History of Present Illness Details Monica was seen in follow-up of hypertension, hyperlipidemia, fatty liver, neuropathy, proteinuria, nephrolithiasis, h/o colon polyps presenting for follow up. Seen by pcp in Jun CV: on atenolol 25mg daily, simvastatin. 126/80. Denies chest pain, dizziness. BH: on prozac 10mg daily would like get off. Has been on for 20+ years and no longer effective. open to SNRI. Did not tolerate wellbutrin in the past Fibromyalgia: on lyrica Endocrine/Renal: Primary hyperPTH s/p parathyroidectomy Dr Gauthier. PTH continues mildly elevated. 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 Her PTH is improving. Her right flank pain is gone after she had ESWL and stenting. 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 Her blood pressure is currently well controlled on the current medication regimen. She does not take any nonsteroidal anti-inflammatory medications. Her renal functions are normal. She had significant proteinuria but better on losartan. Colonoscopy -q 5 years. overdue. requests referral to Dr Demetri Wang 01/2025 ROS CONSTITUTIONAL: Denies weight loss, fever and chills. HEENT: Denies changes in vision and hearing. RESPIRATORY: Denies SOB and cough. CV: Denies palpitations and CP GI: Denies abdominal pain, nausea, vomiting and diarrhea. : Denies dysuria and urinary frequency. MSK: Denies new myalgia and joint pain. SKIN: Denies rash and pruritus. NEUROLOGICAL: Denies headache PSYCHIATRIC: Denies recent changes in mood. PHYSICAL EXAM: GENERAL: Alert and oriented x 3. NAD EYES: EOMI. Anicteric. HENT: Moist mucous membranes. No scleral icterus. No cervical lymphadenopathy. LUNGS: Clear to auscultation bilaterally. CARDIOVASCULAR: Regular rate and rhythm. No murmur. No JVD. ABDOMEN: Soft, non-tender +bs EXTREMITIES: No edema. Non-tender. SKIN: No rashes or lesions. Warm. NEUROLOGIC: No focal neurological deficits. CN II-XII grossly intact PSYCHIATRIC: Cooperative. Appropriate mood and affect [facility] Medical History Opioid use disorder Family History Mother No problems noted. Father No problems noted. Social History Housing: House Patient Tobacco Use Status: Former Tobacco user e-Cigarette/Vaping Use: Former Use service: No Current occupational status: retired Cognitive needs: No Hearing needs: No Vision needs: Yes (rx glasses) Questionnaire PHQ-9 Over the last 2 weeks, how often have you been bothered by any of the following problems? 1. Little interest or pleasure in doing things: not at all 2. Feeling down, depressed, or hopeless: not at all 3. Trouble falling or staying asleep, or sleeping too much: not at all 4. Feeling tired or having little energy: not at all 5. Poor appetite or overeating: not at all 6. Feeling bad about yourself - or that you are a failure or have let yourself or your family down: not at all 7. Trouble concentrating on things, such as reading the newspaper or watching television: not at all 8. Moving or speaking so slowly that other people could have noticed. Or the opposite - being so fidgety or restless that you have been moving around a lot more than usual: not at all 9. Thoughts that you would be better off or of hurting yourself in some way: not at all Total score: 0 Depression Screening Interpretation: Negative Depression Screening Done: Yes 74800 - PHQ-9 Billing: Yes Source: Developed by Drs. Lloyd Wilson, Nicholas Mullins and colleagues, with an educational oly from [employer]. Thrive Questionnaire Date Thrive assessed: 02/04/25 I am a: Patient Within the past 12 months, did the food you bought not last and you didn't have the money to get more?: Never true Within the past 12 months, did you worry whether your food would run out before you got money to buy more?: Never true Do you have trouble paying for medicines?: No Do you have trouble getting transportation to medical appointments?: No Do you have trouble paying your heating and electricity bill?: No Do you have trouble taking care of your child, family member or friend?: No Do you have trouble with day-to-day activities such as bathing, preparing meals, shopping, managing finances, etc.?: No Are you currently unemployed and looking for a job?: No Are you interested in more education?: No THRIVE Score: 0 AUDIT C Alcohol Use Questionnaire (AUDIT-C) 1. How often do you have a drink containing alcohol?: Never 3. How often do you have six or more drinks on one occasion?: Never Total Score: 0 YAMILET-7 AMB Questionnaire YAMILET-7 Date YAMILET - 7 assessed: 02/04/25 Feeling nervous, anxious, or on edge: 0 = Not at all Not being able to stop or control worryin = Not at all Worrying too much about different things: 0 = Not at all Trouble relaxin = Not at all Being so restless that it is hard to sit still: 0 = Not at all Becoming easily annoyed or irritable: 0 = Not at all Feeling afraid as if something awful might happen: 0 = Not at all Total YAMILET-7 score (0-4 normal; 5-9 mild; 10-14 moderate; 15-21 severe): 0 Source: Developed by Drs. Lloyd Wilson, Nicholas Mullins and colleagues, with an educational oly from [employer]. Physical exam (Primary Care) Vital Signs: Last Vital Signs Temp 97.7 F 05/23/25 13:32 Pulse 105 H 02/04/25 13:32 BP 126/80 02/04/25 13:32 Pulse Ox 97 02/04/25 13:32 Oxygen Delivery Method Room Air 02/04/25 13:32 BMI result Body Mass Index 29.4 Tobacco/Smoking Status: Tobacco use Status Tobacco use date assessed 02/04/25 02/04/25 13:33 Patient Tobacco Use Status Never used Tobacco 02/04/25 13:33 e-Cigarette/Vaping Use Never Used 02/04/25 13:33 PHQ-9: PHQ-9 Score PHQ-9: Total score 0 02/04/25 13:33 Depression Screening Interpretation: Negative Thrive Assessment: Date of Thrive Assessment Date Thrive assessed 02/04/25 02/04/25 13:33 Coding Level of Care Code New Pt Level 4 (72845) Complex EM visit Add On G2211 Diagnoses Primary hypertension I10 Hypertension type: primary hypertension Primary hyperparathyroidism E21.0 Other proteinuria R80.8 Proteinuria type: other Additional Codes PHQ-9 - 40993 - PHQ-9 Billing: Yes ([id number]) Assessment & Plan Assessment & Plan (1) Hypertension: Code(s): I10 - Essential (primary) hypertension Category: Medical Qualifiers: Hypertension type: primary hypertension Qualified Code(s): I10 - Essential (primary) hypertension (2) Primary hyperparathyroidism: Code(s): E21.0 - Primary hyperparathyroidism Category: Medical (3) Proteinuria: Code(s): R80.9 - Proteinuria, unspecified Category: Medical Qualifiers: Proteinuria type: other Qualified Code(s): R80.8 - Other proteinuria Plan 69 year old to establish care Past medical, surgical and social reviewed Chronic medical conditions stable Overdue colonoscopy-referral placed Orders: Orders Complete Blood Count Auto Diff Today E21.0 - Primary hyperparathyroidism, I10 - Essential (primary) hypertension, Z13.220 - Encounter for screening for lipoid disorders, Z13.228 - Encounter for screening for other metabolic disorders Comprehensive Met. Panel Today E21.0 - Primary hyperparathyroidism, I10 - Essential (primary) hypertension, Z13.220 - Encounter for screening for lipoid disorders, Z13.228 - Encounter for screening for other metabolic disorders Hemoglobin A1c Today E21.0 - Primary hyperparathyroidism, I10 - Essential (primary) hypertension, Z13.220 - Encounter for screening for lipoid disorders, Z13.228 - Encounter for screening for other metabolic disorders Vitamin B12 and Folate Today E21.0 - Primary hyperparathyroidism, I10 - Essential (primary) hypertension, Z13.220 - Encounter for screening for lipoid disorders, Z13.228 - Encounter for screening for other metabolic disorders Lipid Panel Today E21.0 - Primary hyperparathyroidism, I10 - Essential (primary) hypertension, Z13.220 - Encounter for screening for lipoid disorders, Z13.228 - Encounter for screening for other metabolic disorders TSH reflex Free T4 Today E21.0 - Primary hyperparathyroidism, I10 - Essential (primary) hypertension, Z13.220 - Encounter for screening for lipoid disorders, Z13.228 - Encounter for screening for other metabolic disorders Referrals Gastroenterology Referral Z12.11 - Encounter for screening for malignant neoplasm of colon, Z86.0101 - Personal history of adenomatous and serrated colon polyps Medications: New duloxetine then increase to 60mg daily 30 mg PO DAILY 7 caps 0RF simvastatin 40 mg PO DAILY 90 tabs 3RF duloxetine 60 mg PO DAILY 30 caps 0RF
[2025-02-04 13:32] VITALS: BP 126/80; PULSE 105; TEMP 36.5; O2SAT 97; BMI 29.4
--- OUTSIDE RECORDS SUMMARY | 2025-02-04 13:33 | XMS_ITS | Encounter Summary ---
Author Organization [facility] Address [address] [place] [address] Phone Care Team Providers Care Teletypesetter Monitor Name Role Phone John Chaudhry MD Primary Care Provider [phone] Encounter Details Date Type Department Care Team (Late st Contact Info) Description 11/07/2022 Telephone [facility] [address] [place] [address] Alfreda Wan MA Social History [...] on filedocumented in this encounter Care Teams Teletypesetter Monitor Relationship Specialty Start Date End Date John Chaudhry MD [address] [place] [address] [address] [facility] PCP - General Internal Medicine 12/15/20 documented as of this encounter
== END 2025-02-04 14:02 | disposition home or self-care (01) ==
LOC: HO.HMCHD 13:31
PROVIDERS: PCP Internal Medicine; Visit Provider Internal Medicine
DX: I10 Essential (primary) hypertension (principal); E21.0 Primary hyperparathyroidism; R80.8 Other proteinuria

== ENCOUNTER → 2025-02-04 13:30 | Outpatient (BNVA) | payer MEDICARE, SELFPAY | PROVIDERS: PCP Internal Medicine; Visit Provider Internal Medicine | DX: I10 Essential (primary) hypertension (principal); E21.0 Primary hyperparathyroidism; R80.8 Other proteinuria; E78.5 Hyperlipidemia, unspecified; K76.0 Fatty (change of) liver, not elsewhere classified; G62.9 Polyneuropathy, unspecified; Z79.899 Other long term (current) drug therapy; Z86.0101 Personal history of adenomatous and serrated colon polyps | CPT/HCPCS: 96127; 99202 ==

== ENCOUNTER 2025-02-28 11:28 | Outpatient (REF) | payer MEDICARE, SELFPAY ==
--- OUTSIDE RECORDS SUMMARY | 2025-02-28 13:03 | XMS_ITS | Encounter Summary ---
Author Organization [facility] Address [address] [place] [address] Phone Care Team Providers Care Process Server Name Role Phone John Chaudhry MD Primary Care Provider [phone] Encounter Details Date Type Department Care Team (Late st Contact Info) Description 11/07/2022 Telephone [facility] [address] [place] [address] Alfreda Wan MA Social History [...] on filedocumented in this encounter Care Teams Process Server Relationship Specialty Start Date End Date John Chaudhry MD [address] [place] [address] [address] [facility] P[facility] - General Internal Medicine 12/15/20 documented as of this encounter
[2025-02-28 14:00] LABS: Creatinine Urine 156.97 mg/dL; Protein/Creatinine Ratio, Ur 0.99 (<0.2); Total Protein Urine Random 155 mg/dL (<12)
== END 2025-02-28 11:29 | disposition home or self-care (01) ==
LOC: HO.10HDLNP 11:28
PROVIDERS: Visit Provider Internal Medicine Nephrology
DX: R80.8 Other proteinuria (principal)
CPT/HCPCS: 82570; 84156

== ENCOUNTER 2025-03-04 09:59 | Outpatient (AMB) | payer MEDICARE, SELFPAY ==
--- NOTE | 2025-03-04 10:03 | HO.NEPHOV_ITS ---
Vital Signs 03/04/25 10:05 Height 5 ft 7 in Weight 181 lb 4 oz BMI 28.4 BP 118/70 Blood Pressure Location Rt brachial Position Sitting Pulse 100 Pulse Source Pulse Oximeter Pulse Oximetry (%) 98 Oxygen Delivery Method Room Air Intake Visit Reasons: 3 MO FU-[facility] Planning Official Required: No Accompanied by: Self / Same As Patient Allergies bupropion (From Wellbutrin) Allergy (Intermediate, Verified 03/04/25 10:05) Rash penicillin G (PENICILLIN G) Allergy (Intermediate, Verified 03/04/25 10:05) Rash HPI Comments Details: Monica was seen in follow-up of her nephrolithiasis, hypertension and proteinuria. She was found have hypercalcemia from primary hyperparathyroidism and underwent parathyroidectomy by Dr. Gauthier. She continued to have rise in PTH. 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 Her PTH is improving. Her right flank pain is gone after she had ESWL and stenting. 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 Her blood pressure is currently well controlled on the current medication regimen. She does not take any nonsteroidal anti-inflammatory medications. Her renal functions are normal. She keeps up with good hydration. She does not have any chest pain, shortness of breath, proximal nocturnal dyspnea, pedal edema, fever, chills, rigors or recent urinary infections. She had significant proteinuria but better on losartan. Work up todate has been negative for proteinuria. She has not had a renal biopsy yet [facility] Medical History Opioid use disorder Family History Mother No problems noted. Father No problems noted. Social History Housing: House Patient Tobacco Use Status: Former Tobacco user e-Cigarette/Vaping Use: Former Use service: No Current occupational status: retired Cognitive needs: No Hearing needs: No Vision needs: Yes (rx glasses) Review of Systems Const All systems reviewed & are unremarkable except as noted in HPI and below Physical Exam Vital Signs: Last Vital Signs Pulse 100 03/04/25 10:05 BP 118/70 03/04/25 10:05 Pulse Ox 98 03/04/25 10:05 Oxygen Delivery Method Room Air 03/04/25 10:05 BMI result Body Mass Index 28.4 Const General: comfortable and no acute distress Orientation/consciousness: patient oriented x3 HEENT Head: Yes normocephalic Mouth: Normal oral and palatal mucosa present Eyes EOM: EOMs intact bilaterally Neck Neck: Yes supple Resp Auscultation: clear to auscultation bilaterally Cardio Jugular venous distension: no JVD Rate: regular rate GI Palpation (GI): Soft to palpation Auscultation: normal bowel sounds General: Yes no CVA tenderness Back/Spine/Pelvis Back: no CVA tenderness Skin General skin exam: no rashes or lesions noted Neuro General: patient oriented x3 and moves all extremities Extrem General: Yes no pedal edema Results Reviewed Nephrology Results: Sodium, (135-145) 142 mmol/L 11/03/24 Potassium, (3.3-5.1) 4.0 mmol/L 11/03/24 Chloride, (96-108) 107 mmol/L 11/03/24 Carbon Dioxide, (22-29) 27 mmol/L 11/03/24 BUN, (9-16) 13 mg/dL 11/03/24 Creatinine, (0.5-1.4) 0.81 mg/dL 11/03/24 Calcium, (8.4-10.2) 9.8 mg/dL 11/03/24 PTH Intact, (8.7-77.1) 97.4 pg/mL H 11/03/24 Urine Protein, (Neg-Trace) 300 (3+) mg/dL H 11/03/24 Urine Creatinine 156.97 mg/dL 02/28/25 Protein/Creatinin Ratio, (<0.2) 0.99 H 02/28/25 Assessment & Plan Assessment & Plan (1) Hypertension: Code(s): I10 - Essential (primary) hypertension Category: Medical Qualifiers: Hypertension type: primary hypertension Qualified Code(s): I10 - Essential (primary) hypertension (2) Primary hyperparathyroidism: Code(s): E21.0 - Primary hyperparathyroidism Category: Medical (3) Proteinuria: Code(s): R80.9 - Proteinuria, unspecified Category: Medical Qualifiers: Proteinuria type: other Qualified Code(s): R80.8 - Other proteinuria (4) Renal stone: Code(s): N20.0 - Calculus of kidney Category: Medical Plan Monica is known to have nephrolithiasis for long time. She had been on hydrochlorothiazide before. She had hypercalcemia and was found to have primary hyperparathyroidism. She underwent parathyroidectomy. Her PTH had been going up. 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 There is no indication yet for initiation of sensipar. Her blood pressure is at goal. She had right staghorn calculus and had ESWL & surgery. She will need F/U reimaging . Her 24 hour urine for protein was reviewed. Her U Protein improved on losartan to 50 mg bid. I started her on Atenolol 12.5 mg daily in the afternoon. ( given she has tachycardia after stopping b michael). She may need SGLT2 i in the future. After discussion with patient we are going to wait for the renal biopsy. I did not make any other medication changes today. I encouraged her to maintain low-sodium diet ,cut back on animal protein, and treat urinary infections appropriately. All questions answered. Follow-up given Orders: Orders Protein Creatinine Ratio, Ur 6 Months E21.0 - Primary hyperparathyroidism, I10 - Essential (primary) hypertension, N20.0 - Calculus of kidney, R80.8 - Other proteinuria Parathyroid Hormone Intact 6 Months E21.0 - Primary hyperparathyroidism, I10 - Essential (primary) hypertension, N20.0 - Calculus of kidney, R80.8 - Other proteinuria Electrolytes 6 Months E21.0 - Primary hyperparathyroidism, I10 - Essential (primary) hypertension, N20.0 - Calculus of kidney, R80.8 - Other proteinuria Blood Urea Nitrogen 6 Months E21.0 - Primary hyperparathyroidism, I10 - Essential (primary) hypertension, N20.0 - Calculus of kidney, R80.8 - Other proteinuria Creatinine 6 Months E21.0 - Primary hyperparathyroidism, I10 - Essential (primary) hypertension, N20.0 - Calculus of kidney, R80.8 - Other proteinuria Calcium 6 Months E21.0 - Primary hyperparathyroidism, I10 - Essential (primary) hypertension, N20.0 - Calculus of kidney, R80.8 - Other proteinuria Medications: New atenolol 12.5 mg (1/2 x 25 mg) PO DAILY 45 tabs 4RF 90 days Coding Level of Care Code Est Pt Level 4 (85277) Diagnoses Primary hypertension I10 Hypertension type: primary hypertension Primary hyperparathyroidism E21.0 Other proteinuria R80.8 Proteinuria type: other Renal stone N20.0
[2025-03-04 10:05] VITALS: BP 118/70; PULSE 100; O2SAT 98; BMI 28.4
--- OUTSIDE RECORDS SUMMARY | 2025-03-04 10:16 | XMS_ITS | Encounter Summary ---
Author Organization [facility] Address [address] [place] [address] Phone Care Team Providers Care Revenue Enforcement Collection Agent Name Role Phone John Chaudhry MD Primary Care Provider [phone] Encounter Details Date Type Department Care Team (Late st Contact Info) Description 11/07/2022 Telephone [facility] [address] [place] [address] Alfreda Wan MA Social History [...] on filedocumented in this encounter Care Teams Revenue Enforcement Collection Agent Relationship Specialty Start Date End Date John Chaudhry MD [address] [place] [address] [address] [facility] P[facility] - General Internal Medicine 12/15/20 documented as of this encounter
== END 2025-03-04 10:34 | disposition home or self-care (01) ==
LOC: HO.HKA 10:00
PROVIDERS: PCP Internal Medicine; Visit Provider Internal Medicine Nephrology
DX: I10 Essential (primary) hypertension (principal); E21.0 Primary hyperparathyroidism; R80.8 Other proteinuria; N20.0 Calculus of kidney
CPT/HCPCS: 99214

== ENCOUNTER → 2025-03-04 09:59 | Outpatient (BNVA) | payer MEDICARE, SELFPAY | PROVIDERS: PCP Internal Medicine; Visit Provider Internal Medicine Nephrology | DX: I10 Essential (primary) hypertension (principal); E21.0 Primary hyperparathyroidism; N20.0 Calculus of kidney; R80.8 Other proteinuria | CPT/HCPCS: 99212 ==

== ENCOUNTER 2025-04-06 10:37 | Outpatient (REF) | payer MEDICARE, SELFPAY ==
--- OUTSIDE RECORDS SUMMARY | 2025-04-06 11:40 | XMS_ITS | Encounter Summary ---
Author Organization [facility] Address [address] [place] [address] Phone Care Team Providers Care Line Palletizer Name Role Phone John Chaudhry MD Primary Care Provider [phone] Encounter Details Date Type Department Care Team (Late st Contact Info) Description 11/07/2022 Telephone [facility] [address] [place] [address] Alfreda Wan MA Social History [...] on filedocumented in this encounter Care Teams Line Palletizer Relationship Specialty Start Date End Date John Chaudhry MD [address] [place] [address] [address] [facility] PCP - General Internal Medicine 12/15/20 documented as of this encounter
[2025-04-06 13:01] LABS: MANUAL DIFF FLAG NO
[2025-04-06 13:07] LABS: Hematocrit 37.4 % (37.0-47.0); Hemoglobin 12.4 g/dl (12.0-16.0); Imm Gran Abs Auto 0.02 X10*3/uL (0.00-0.03); Imm Gran Pct Auto 0.3 % (0.0-0.4); Lymphocytes Absolute Auto 2.7 X10*3/uL (1.2-4.9); Mean Corpuscular HGB Conc 33.2 g/dl (31.0-35.0); Mean Corpuscular Hemoglobin 30.8 pg (27.0-33.0); Mean Corpuscular Volume 92.8 fL (80.0-98.0); NRBC Abs Auto 0.000 X10*3/uL (0.0-0.012); NRBC Pct Auto 0.0 /100WBC (0.0-0.2); Platelet Count 354 X10*3/uL (160-400); Red Blood Count 4.03 X10*6/uL (4.20-5.50); White Blood Count 6.5 X10*3/uL (4.8-10.8)
[2025-04-06 13:21] LABS: Hemoglobin A1C 131.8976 umol/L; Total Hemoglobin (HGBA1C) 3236.6312 umol/L
[2025-04-06 13:33] LABS: Alanine Aminotransferase 34 U/L (0-31); Albumin Level 4.3 g/dL (3.5-5.0); Alkaline Phosphatase 86 U/L (39-117); Anion Gap 9 (12-20); Aspartate Amino Transferase 29 U/L (5-31); Blood Urea Nitrogen 16 mg/dL (9-16); Calcium 9.4 mg/dL (8.4-10.2); Carbon Dioxide 28 mmol/L (22-29); Chloride 109 mmol/L (96-108); Cholesterol 161 mg/dL (<200); Estimated Glomerular Filt Rate > 60; HDL Cholesterol 41 mg/dL (>40); Potassium 4.0 mmol/L (3.3-5.1); Sodium 142 mmol/L (135-145); Total Protein 7.3 g/dL (6.5-8.0); Triglycerides 246 mg/dL (<150)
[2025-04-06 13:50] LABS: Folate 7.5 ng/mL (> or = 4.0); Vitamin B12 522 pg/mL (200-900)
== END 2025-04-06 10:38 | disposition home or self-care (01) ==
LOC: HO.10HDL 10:37
PROVIDERS: Visit Provider Internal Medicine
DX: E21.0 Primary hyperparathyroidism (principal); I10 Essential (primary) hypertension; Z13.1 Encounter for screening for diabetes mellitus
CPT/HCPCS: 36415; 80053; 80061; 82607; 82746; 83036; 84443; 85025

== ENCOUNTER 2025-04-15 11:17 | Outpatient (AMB) | payer MEDICARE, SELFPAY ==
--- NOTE | 2025-04-15 11:15 | MHC.PC.OV ---
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 CV: on atenolol 12.5mg daily, simvastatin. Blood pressure is well controlled Denies chest pain, dizziness. BH: At last visit transitioned from prozac to cymbalta. Currently on 60mg daily. She feels much better with the change. intolerant wellbutrin in the past Fibromyalgia: on cymbalta. Feelingless pain Endocrine/Renal: Primary hyperPTH s/p parathyroidectomy Dr Gauthier. PTH continues mildly elevated. 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 Her PTH is improving. Her right flank pain is gone after she had ESWL and stenting. 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 Her blood pressure is currently well controlled on the current medication regimen. She does not take any nonsteroidal anti-inflammatory medications. Her renal functions are normal. She had significant proteinuria but better on losartan. Colonoscopy -q 5 years. overdue. requests referral to Dr Demetri Wang 01/2025 ROS CONSTITUTIONAL: Denies weight loss, fever and chills. HEENT: Denies changes in vision and hearing. RESPIRATORY: Denies SOB and cough. CV: Denies palpitations and CP GI: Denies abdominal pain, nausea, vomiting and diarrhea. : Denies dysuria and urinary frequency. MSK: Denies new myalgia and joint pain. SKIN: Denies rash and pruritus. NEUROLOGICAL: Denies headache PSYCHIATRIC: Denies recent changes in mood. PHYSICAL EXAM: GENERAL: Alert and oriented x 3. NAD EYES: EOMI. Anicteric. HENT: Moist mucous membranes. No scleral icterus. No cervical lymphadenopathy. LUNGS: Clear to auscultation bilaterally. CARDIOVASCULAR: Regular rate and rhythm. No murmur. No JVD. ABDOMEN: Soft, non-tender +bs EXTREMITIES: No edema. Non-tender. SKIN: No rashes or lesions. Warm. NEUROLOGIC: No focal neurological deficits. CN II-XII grossly intact PSYCHIATRIC: Cooperative. Appropriate mood and affect [facility] Medical History (Updated 04/17/25 @ 15:31 by Luisana Slade MD) Opioid use disorder Surgical History (Updated 04/12/25 @ 16:00 by Sydnee Howard) History of colonoscopy (~08/24/15) Family History Mother No problems noted. Father No problems noted. Social History Housing: House Patient Tobacco Use Status: Former Tobacco user e-Cigarette/Vaping Use: Former Use service: No Current occupational status: retired Cognitive needs: No Hearing needs: No Vision needs: Yes (rx glasses) Questionnaire Thrive Questionnaire Date Thrive assessed: 02/04/25 AUDIT C Alcohol Use Questionnaire (AUDIT-C) 1. How often do you have a drink containing alcohol?: Never Total Score: 0 YAMILET-7 AMB Questionnaire YAMILET-7 Date YAMILET - 7 assessed: 02/04/25 Source: Developed by Drs. Lloyd Wilson, Domi Zazueta, Nicholas Carrion and colleagues, with an educational oly from [employer]. Physical exam (Primary Care) Vital Signs: Last Vital Signs Temp 97.3 F 04/15/25 11:20 Pulse 83 04/15/25 11:20 Resp 17 04/15/25 11:20 BP 100/68 04/15/25 11:20 Pulse Ox 97 04/15/25 11:20 Oxygen Delivery Method Room Air 04/15/25 11:20 Tobacco/Smoking Status: Tobacco use Status Tobacco use date assessed 02/04/25 04/15/25 11:22 Patient Tobacco Use Status Former Tobacco user 04/15/25 11:22 e-Cigarette/Vaping Use Former Use 04/15/25 11:22 Thrive Assessment: Date of Thrive Assessment Date Thrive assessed 02/04/25 04/15/25 11:22 Coding Level of Care Code Est Pt Level 4 (89467) Diagnoses Primary hypertension I10 Hypertension type: primary hypertension Elevated glucose R73.09 Primary hyperparathyroidism E21.0 Major depressive disorder, remission status unspecified, unspecified whether recurrent F32.9 Active/Remission status: remission status unspecified Depression Type: major depressive disorder Major depression recurrence: unspecified whether recurrent Assessment & Plan Assessment & Plan (1) Hypertension: Code(s): I10 - Essential (primary) hypertension Category: Medical Qualifiers: Hypertension type: primary hypertension Qualified Code(s): I10 - Essential (primary) hypertension (2) Elevated glucose: Code(s): R73.09 - Other abnormal glucose Category: Medical (3) Primary hyperparathyroidism: Code(s): E21.0 - Primary hyperparathyroidism Category: Medical (4) Depression: Code(s): F32.A - Depression, unspecified Category: Medical Qualifiers: Active/Remission status: remission status unspecified Depression Type: major depressive disorder Major depression recurrence: unspecified whether recurrent Qualified Code(s): F32.9 - Major depressive disorder, single episode, unspecified Plan Depression, OA better controlled on cymbalta HTN-controlled. continue atenolol Orders: Orders Lipid Panel 04/15/25 I10 - Essential (primary) hypertension, R73.09 - Other abnormal glucose, Z13.220 - Encounter for screening for lipoid disorders Liver Panel 04/15/25 I10 - Essential (primary) hypertension, R73.09 - Other abnormal glucose, Z13.220 - Encounter for screening for lipoid disorders Hemoglobin A1c 04/15/25 I10 - Essential (primary) hypertension, R73.09 - Other abnormal glucose, Z13.220 - Encounter for screening for lipoid disorders
[2025-04-15 11:20] VITALS: BP 100/68; PULSE 83; RESP 17; TEMP 36.3; O2SAT 97
--- OUTSIDE RECORDS SUMMARY | 2025-04-15 11:22 | XMS_ITS | Encounter Summary ---
Author Organization [facility] Address [address] [place] [address] Phone Care Team Providers Care Home Care Aide Name Role Phone John Chaudhry MD Primary Care Provider [phone] Encounter Details Date Type Department Care Team (Late st Contact Info) Description 11/07/2022 Telephone [facility] [address] [place] [address] Alfreda Wan MA Social History [...] on filedocumented in this encounter Care Teams Home Care Aide Relationship Specialty Start Date End Date John Chaudhry MD [address] [place] [address] [id number] [facility] - General Internal Medicine 12/15/20 documented as of this encounter
== END 2025-04-15 11:48 | disposition home or self-care (01) ==
LOC: HO.HMCHD 11:18
PROVIDERS: PCP Internal Medicine; Visit Provider Internal Medicine
DX: I10 Essential (primary) hypertension (principal); R73.09 Other abnormal glucose; E21.0 Primary hyperparathyroidism; F32.9 Major depressive disorder, single episode, unspecified

== ENCOUNTER → 2025-04-15 11:17 | Outpatient (BNVA) | payer MEDICARE, SELFPAY | PROVIDERS: PCP Internal Medicine; Visit Provider Internal Medicine | DX: I10 Essential (primary) hypertension (principal); R73.09 Other abnormal glucose; E21.0 Primary hyperparathyroidism; F32.9 Major depressive disorder, single episode, unspecified; Z79.899 Other long term (current) drug therapy | CPT/HCPCS: 99212 ==